=== PATIENT | female | born 1945 | race Caucasian/White ===

== ENCOUNTER → 2020-02-09 12:10 | Outpatient (CLI) | payer MEDICARE, SELFPAY ==
--- NOTE | ~2020-02-09 | MM_ITS ---
EXAMINATION: MM screening anahi BI w ramesh HISTORY: Screening TECHNIQUE: Craniocaudal and mediolateral oblique 3-D tomosynthesis images were obtained and synthetic 2-D images were generated. CAD analysis was submitted and interpreted. COMPARISON: Comparison to multiple prior studies sequentially, with oldest reviewed study dated 05/2014. BREAST PARENCHYMAL COMPOSITION: There are scattered areas of fibroglandular density. FINDINGS: Stable bilateral breast asymmetries. There is no evidence of suspicious mass, calcification , or architectural distortion to suggest malignancy in either breast. There has been no suspicious in terval change. IMPRESSION: 1. No mammographic evidence of malignancy. 2. Recommend routine screening mammography in one year. BI-RADS Category 2: Benign finding(s). Reviewed, dictated and finalized at location A. AGE MAKER
--- NOTE | ~2020-02-09 | DEXA_ITS ---
Bone Density Report Name: Nahomi Villavicencio Age: 74 Sex: Female Ethnicity: White Date of : 1945 Indication: postmenopausal; screening for osteoporosis; height loss; hysterectomy; Referring Provider: Brenda Donovan Study: Bone densitometry was performed. Exam Date: February 09, 2020 Accession number: [id number] Bone Density: Region BMD T-score Z-score Classification AP Spine (L1-L4) 1.025 -0.2 2.2 Normal Femoral Neck (Left) 0.508 -3.1 -1.0 Osteoporosis Total Hip (Left) 0.705 -1.9 -0.1 Osteopenia Femoral Neck (Right) 0.491 -3.2 -1.1 Osteoporosis Total Hip (Right) 0.691 -2.1 -0.3 Osteopenia Total Hip Mean 0.698 -2.0 -0.2 Osteopenia World Health Organization criteria for BMD impression classify patients as: Normal (T-score at or above -1.0), Osteopenia (T-score between -1.0 and -2.5), or Osteoporosis (T-score at or below -2.5). 10-year Fracture Risk: FRAX not reported because: Some T-score for Spine Total or Hip Total or Femoral Neck at or below -2.5 Clinical Information Provided by Patient: Has used the following medications: Vitamin D Has the following medical conditions: Hysterectomy Patient maximum height was 62 Menopause Age: 45 Does not regularly consume dairy products Drinks caffeinated beverages Onset of menses at age 13 Number of children 2 Impression: The patient has osteoporosis, based on the Right Femoral Neck T-score. Discussion: INCREASED RISK OF FRACTURE. BONE DENSITY IS UNDESIRABLY LOW AT ONE OR MORE SKELETAL SITES, CONSISTENT WITH POSTMENOPAUSAL OSTEOPOROSIS. This patient's lowest T-score meets the World Health Organization's (WHO) criteria for osteoporosis at one or more sites (T-score -2.5 or below). In untreated patients, the risk of osteoporotic fracture increases approximately two-fold for each 1.0 SD decrease in T-score. Low bone density is not the only risk factor for fracture; also consider factors such as patient's age, frailty or poor health, risk of falling, risk of injury, previous osteoporotic fracture, family history of osteoporosis, cigarette smoking, low body weight, etc. Not everyone with low bone mineral density has osteoporosis; osteomalacia and other metabolic bone disorders should also be considered. Patients who have osteoporosis should be evaluated for specific diseases and conditions (secondary causes) that may cause or contribute to bone loss. The [place] [employer] Endocrinologists (AACE) and National Osteoporosis Foundation (NOF) recommend pharmacologic intervention for all postmenopausal women whose T-score is in this range. The patient should follow a healthful lifestyle (good nutrition with adequate calcium and vitamin D, and appropriate weight-bearing exercise). Follow-Up: Consider a repeat BMD and Vertebral Fracture Assessment (VFA) exam in 2
== END ==
PROVIDERS: PCP Internal Medicine; Visit Provider Nurse Practitioner
DX: Z12.31 Encounter for screening mammogram for malignant neoplasm of breast (principal); Z78.0 Asymptomatic menopausal state; M85.89 Other specified disorders of bone density and structure, multiple sites; M81.0 Age-related osteoporosis without current pathological fracture
CPT/HCPCS: 77063; 77067; 77080

== ENCOUNTER → 2021-02-10 10:47 | Outpatient (CLI) | payer MEDICARE, SELFPAY ==
--- NOTE | ~2021-02-10 | MM_ITS ---
EXAMINATION: MM screening anahi BI w ramesh HISTORY: Screening mammogram, family history of breast cancer in her mother and daughter. TECHNIQUE: Craniocaudal and mediolateral oblique 3-D tomosynthesis images were obtained and synthetic 2-D images were generated. CAD analysis was submitted and interpreted. COMPARISON: 02/09/2020, 01/05/2019, 12/20/2017 BREAST PARENCHYMAL COMPOSITION: There are scattered areas of fibroglandular density. FINDINGS: RIGHT BREAST: There is no evidence of suspicious mass, calcification, or architectural distortion to suggest malignancy. There has been no significant interval change. LEFT BREAST: There is a mass in the posterior third of the lower inner breast 4 cm from the nipple. IMPRESSION: 1. Left breast mass. 2. Additional mammographic views and possible breast ultrasound are recommended. BI-RADS Category 0: Incomplete: Needs additional imaging evaluation. Reviewed, dictated and finalized at location A. CIATE MANAGER AFFILIATE MARKETING IMPRESSION: 1. Left breast mass. 2. Additional mammographic views and possible breast ultrasound are recommended . BI-RADS Category 0: Incomplete: Needs additional imaging evaluation.
== END ==
PROVIDERS: PCP Internal Medicine; Visit Provider Nurse Practitioner
DX: Z12.31 Encounter for screening mammogram for malignant neoplasm of breast (principal); R92.8 Other abnormal and inconclusive findings on diagnostic imaging of breast
CPT/HCPCS: 77063; 77067

== ENCOUNTER → 2021-03-01 08:28 | Outpatient (CLI) | payer MEDICARE, SELFPAY ==
--- NOTE | ~2021-03-01 | MMUS_ITS ---
EXAMINATION: MM diagnostic anahi LT w ramesh, US breast LT limited HISTORY: Follow-up left breast mass TECHNIQUE: Additional 3-D tomosynthesis images of the left breast were performed and synthetic 2-D im ages were generated. CAD analysis was submitted and interpreted. High resolution Limited left breast ultrasound was performed. COMPARISON: 02/10/2021 BREAST PARENCHYMAL COMPOSITION: Breast composed of scattered areas of fibroglandular density FINDINGS: MAMMOGRAPHIC FINDINGS: There is a mass in the lower central/inner aspect of the left breast with central lucency and circums cribed margins. ULTRASOUND: Limited left breast ultrasound: At 6:00, 4 cm from the nipple there is a 6 mm cyst. No other discrete masses are identified. IMPRESSION: 1. Benign cyst at 6:00, 4 cm from the nipple likely corresponds to the mammographic finding. 2. Recommend 6 month follow-up diagnostic left mammogram with possible additional ultrasound BI-RADS category 3, probably benign findings. Reviewed, dictated and finalized at location A. FILLING MACHINE OPERATOR IMPRESSION: 1. Benign cyst at 6:00, 4 cm from the nipple likely corresponds to the mammogra phic finding. 2. Recommend 6 month follow-up diagnostic left mammogram with possible addition al ultrasound BI-RADS category 3, probably benign findings.
== END ==
PROVIDERS: PCP Internal Medicine; Visit Provider Nurse Practitioner
DX: N60.02 Solitary cyst of left breast (principal)
CPT/HCPCS: 76642; 77061; 77065; G0279

== ENCOUNTER 2021-10-09 11:44 | Outpatient (CLI) | payer MEDICARE, SELFPAY ==
--- NOTE | ~2021-10-09 | MMUS_ITS ---
EXAMINATION: MM diagnostic anahi LT w ramesh, US breast LT limited HISTORY: Six-month follow-up for probably benign left breast mass TECHNIQUE: Craniocaudal, mediolateral, and mediolateral oblique 3-D tomosynthesis images of the left breast were performed and synthetic 2-D images were generated. CAD analysis was submitted and interpr eted. High resolution limited left breast ultrasound was performed. COMPARISON: 03/01/2021, 02/10/2021, 02/09/2020, 01/05/2019 BREAST PARENCHYMAL COMPOSITION: There are scattered areas of fibroglandular density. FINDINGS: MAMMOGRAPHIC FINDINGS: There is a 12 mm high density mass with spiculated and indistinct margins in the posterior third lowe r outer quadrant left breast at the 8:00 location 13 cm from the nipple with slight increase in size. ULTRASOUND: No definite sonographic correlate is identified for the mammographic finding in question. There is a 5 mm cyst at the 6:00 location 4 cm from the nipple. IMPRESSION: 1. Suspicious left breast mass without definite sonographic correlate identified. 2. Stereotactic biopsy is recommended. BI-RADS category 4, suspicious findings. Reviewed, dictated and finalized at location A. IMPRESSION: 1. Suspicious left breast mass without definite sonographic correlate identifie d. 2. Stereotactic biopsy is recommended. BI-RADS category 4, suspicious findings.
== END 2021-10-09 11:45 | disposition home or self-care (01) ==
LOC: ANHIMG 11:45
PROVIDERS: PCP Internal Medicine; Visit Provider Nurse Practitioner
DX: R92.8 Other abnormal and inconclusive findings on diagnostic imaging of breast (principal)
CPT/HCPCS: 76642; 77061; 77065; G0279

== ENCOUNTER 2021-10-18 09:11 | Outpatient (CLI) | payer MEDICARE, SELFPAY ==
--- NOTE | ~2021-10-18 | MM_ITS ---
MM stereotactic specimen LT DATE: 10/18/2021 12:07 INDICATION: Productive biopsy of 12 mm soft tissue opacity, lower inner quadrant of left breast TECHNIQUE: Single digital mammographic exposure of specimen tissue COMPARISON: 10/09/2021 diagnostic left mammogram 10/18/2021 stereotactic left breast biopsy FINDINGS: Multiple fragments of the mammographic soft tissue density of interest are noted within the specimen tissue. IMPRESSION: Successful stereotactic biopsy yielding multiple fragments of the mammographic soft tissu e density of interest from the lower inner quadrant Reviewed, dictated and finalized at Location A. Reviewed, dictated and finalized at location A. IMPRESSION: Successful stereotactic biopsy yielding multiple fragments of the m ammographic soft tissue density of interest from the lower inner quadrant
--- NOTE | ~2021-10-18 | MM_ITS ---
EXAMINATION: MM stereotactic bx LT, Specimen Radiograph, Tissue Marker Clip Placement, Unilateral Eric mogram DATE: 10/18/2021 12:05 INDICATION: Abnormal mammogram: 12 mm high density mammographic mass in posterior third of lower inne r quadrant of left breast. TECHNIQUE AND FINDINGS: The risks and potential benefits of the procedure were discussed with the patient and written informe d consent was obtained. Timeout procedure was performed. The patient was placed in the prone position on the dedicated stereotactic table with the left breast in mediolateral compression, and the area o f interest was localized and targeted utilizing digital imaging with stereotaxis. After sterile preparation of the skin, 1% lidocaine was utilized for local anesthesia at the skin pun cture site and 1% lidocaine with epinephrine was utilized for deeper local anesthesia/is about the bi opsy site. A 9G makerSQR vacuum assisted biopsy needle was advanced to the level of the calcification o f interest from a medial approach utilizing stereotactic guidance and a total of 15 tissue core biops ies were obtained. The needle was removed and hemostasis was achieved. A sterile bandage was applied. The patient tole rated the procedure well and there is no evidence of significant immediate complication. The patient was given verbal as well as written postprocedural instructions prior to discharge from the [facility]. Tissue cores were submitted to surgical pathology for histologic analysis. A 2-view right unilateral digital mammogram was obtained post procedure. IMPRESSION: 1. Successful stereotactic biopsy of lower inner quadrant left mammographic opacity. Please refer to pathology report for histologic analysis. Reviewed, dictated and finalized at Location A. Reviewed, dictated and finalized at location A. IMPRESSION: 1. Successful stereotactic biopsy of lower inner quadrant left mammographic o pacity. Please refer to pathology report for histologic analysis.
--- NOTE | ~2021-10-18 | MM_ITS ---
MM post biopsy diagnostic LT DATE: 10/18/2021 12:07 INDICATION: Stereotactic biopsy of 12 mm opacity, lower inner quadrant of left breast TECHNIQUE: Digital ML and CC exposures following*detected biopsy COMPARISON: 10/09/2021 diagnostic left mammogram FINDINGS: There is successful partial excision of the previously reported mammographic opacity in the lower inner left breast by means of stereotactic biopsy today. IMPRESSION: Successful stereotactic biopsy sampling of mass density at lower inner quadrant of left b reast Reviewed, dictated and finalized at Location A. Reviewed, dictated and finalized at location A. IMPRESSION: Successful stereotactic biopsy sampling of mass density at lower in ner quadrant of left breast
== END 2021-10-18 09:12 | disposition home or self-care (01) ==
PROVIDERS: PCP Internal Medicine; Visit Provider Nurse Practitioner
DX: C50.312 Malignant neoplasm of lower-inner quadrant of left female breast (principal); R92.8 Other abnormal and inconclusive findings on diagnostic imaging of breast
CPT/HCPCS: 19081; 77065; 88305; 88342; 88360

== ENCOUNTER 2022-04-20 10:25 | Outpatient (CLI) | payer MEDICARE, SELFPAY ==
[2022-04-20 10:39] LABS: Basophils Percent Auto 0.6 % (0.2-1.2); Eosinophils Absolute Auto 0.1 K/mm3 (0-0.3); Eosinophils Percent Auto 2.6 % (0-4.4); Hematocrit 40.6 % (37.0-47.0); Hemoglobin 13.9 g/dL (12.0-15.0); Immature Granulocyte Absolute 0.01 K/mm3 (0.00-0.031); Immature Granulocyte Percent A 0.2 % (0-0.5); Lymphocytes Absolute Auto 1.42 K/mm3 (0.9-3.2); Lymphocytes Percent Auto 26.6 % (18.3-44.2); Mean Corpuscular HGB Conc 34.2 g/dl (32-36); Mean Corpuscular Hemoglobin 30.5 pg (26-34); Mean Platelet Volume 8.6 fl (7.4-10.4); Monocytes Absolute Auto 0.6 K/mm3 (0.1-0.6); Monocytes Percent Auto 10.9 % (2.6-8.5); Neutrophils Absolute Auto 3.2 K/mm3 (1.3-6.7); Neutrophils Percent Auto 59.1 % (45.5-73.1); Platelet Count Result 193 k/mm3 (150-375); Red Blood Count 4.56 M/mm3 (4.2-5.4); White Blood Count 5.3 K/mm3 (4.5-10.0)
[2022-04-20 10:43] LABS: Blood Urea Nitrogen 16 mg/dL (8-26); Carbon Dioxide 33 mmol/L (22-30); Chloride 95 mmol/L (98-109); Estimated Glomerular Filt Rate 44; Glucose 100 mg/dL (70-105); Ionized Calcium (POC) 1.26 mmol/L (1.11-1.31); Potassium 4.3 mmol/L (3.5-4.9); Sodium 135 mmol/L (138-146)
[2022-04-20 11:05] LABS: Alanine Aminotransferase 27 U/L (6-35); Albumin Level 4.4 g/dL (3.5-5.1); Alkaline Phosphatase 44 U/L (38-126); Anion Gap 5 mmol/L (8-16); Aspartate Amino Transferase 35 U/L (14-36); Bilirubin,Total 0.6 mg/dL (0.2-1.3); Blood Urea Nitrogen 16 mg/dL (7-17); Calcium 9.8 mg/dL (8.4-10.2); Carbon Dioxide 31 mmol/L (22-30); Chloride 95 mmol/L (98-107); Estimated Glomerular Filt Rate 54; Glucose 99 mg/dL (65-110); Potassium 4.3 mmol/L (3.4-5.0); Sodium 131 mmol/L (137-145)
== END 2022-04-20 10:26 | disposition home or self-care (01) ==
LOC: ANHLAB 10:28
PROVIDERS: PCP Internal Medicine; Visit Provider Internal Medicine Hematology & Oncology
DX: C50.512 Malignant neoplasm of lower-outer quadrant of left female breast (principal); Z17.0 Estrogen receptor positive status [ER+]
CPT/HCPCS: 36415; 80047; 80053; 85025

== ENCOUNTER 2022-08-02 13:04 | Outpatient (CLI) | payer MEDICARE, SELFPAY ==
[2022-08-02 13:20] LABS: Basophils Percent Auto 0.3 % (0.2-1.2); Hematocrit 38.4 % (37.0-47.0); Hemoglobin 13.6 g/dL (12.0-15.0); Immature Granulocyte Absolute 0.03 K/mm3 (0.00-0.031); Immature Granulocyte Percent A 0.3 % (0-0.5); Lymphocytes Absolute Auto 1.47 K/mm3 (0.9-3.2); Lymphocytes Percent Auto 17.1 % (18.3-44.2); Mean Corpuscular HGB Conc 35.4 g/dl (32-36); Mean Corpuscular Hemoglobin 30.5 pg (26-34); Mean Corpuscular Volume 86.1 fl (80-100); Mean Platelet Volume 8.1 fl (7.4-10.4); Monocytes Absolute Auto 0.7 K/mm3 (0.1-0.6); Monocytes Percent Auto 8.4 % (2.6-8.5); Neutrophils Absolute Auto 6.4 K/mm3 (1.3-6.7); Neutrophils Percent Auto 73.9 % (45.5-73.1); Platelet Count Result 302 k/mm3 (150-375); Red Blood Count 4.46 M/mm3 (4.2-5.4); Red Cell Distribution Width 11.5 % (11.5-14.5); White Blood Count 8.6 K/mm3 (4.5-10.0)
[2022-08-02 16:24] LABS: Alanine Aminotransferase 24 U/L (6-35); Albumin Level 4.5 g/dL (3.5-5.1); Alkaline Phosphatase 66 U/L (38-126); Anion Gap 6 mmol/L (8-16); Aspartate Amino Transferase 45 U/L (14-36); Bilirubin,Total 0.5 mg/dL (0.2-1.3); Blood Urea Nitrogen 15 mg/dL (7-17); Calcium 9.7 mg/dL (8.4-10.2); Carbon Dioxide 28 mmol/L (22-30); Chloride 93 mmol/L (98-107); Estimated Glomerular Filt Rate > 60; Glucose 104 mg/dL (65-110); Potassium 4.9 mmol/L (3.4-5.0); Sodium 127 mmol/L (137-145)
[2022-08-09 07:59] LABS: CA 15-3 12 U/mL (<32)
== END 2022-08-02 13:05 | disposition home or self-care (01) ==
LOC: ANHLAB 13:06
PROVIDERS: PCP Family Medicine; Visit Provider Internal Medicine Hematology & Oncology
DX: C50.512 Malignant neoplasm of lower-outer quadrant of left female breast (principal); Z17.0 Estrogen receptor positive status [ER+]
CPT/HCPCS: 36415; 80053; 85025; 86300

== ENCOUNTER 2022-11-01 11:27 | Outpatient (CLI) | payer MEDICARE, SELFPAY ==
[2022-11-01 11:41] LABS: Basophils Percent Auto 0.4 % (0.2-1.2); Eosinophils Absolute Auto 0.1 K/mm3 (0-0.3); Eosinophils Percent Auto 1.3 % (0-4.4); Hematocrit 41.2 % (37.0-47.0); Hemoglobin 13.8 g/dL (12.0-15.0); Immature Granulocyte Absolute 0.02 K/mm3 (0.00-0.031); Immature Granulocyte Percent A 0.3 % (0-0.5); Lymphocytes Absolute Auto 1.27 K/mm3 (0.9-3.2); Lymphocytes Percent Auto 18.9 % (18.3-44.2); Mean Corpuscular HGB Conc 33.5 g/dl (32-36); Mean Corpuscular Hemoglobin 30.4 pg (26-34); Mean Corpuscular Volume 90.7 fl (80-100); Mean Platelet Volume 8.8 fl (7.4-10.4); Monocytes Absolute Auto 0.6 K/mm3 (0.1-0.6); Monocytes Percent Auto 8.2 % (2.6-8.5); Neutrophils Absolute Auto 4.8 K/mm3 (1.3-6.7); Neutrophils Percent Auto 70.9 % (45.5-73.1); Platelet Count Result 180 k/mm3 (150-375); Red Blood Count 4.54 M/mm3 (4.2-5.4); Red Cell Distribution Width 12.3 % (11.5-14.5); White Blood Count 6.7 K/mm3 (4.5-10.0)
[2022-11-01 12:09] LABS: Alanine Aminotransferase 25 U/L (6-35); Albumin Level 4.4 g/dL (3.5-5.1); Alkaline Phosphatase 46 U/L (38-126); Anion Gap 5 mmol/L (8-16); Aspartate Amino Transferase 43 U/L (14-36); Bilirubin,Total 0.6 mg/dL (0.2-1.3); Blood Urea Nitrogen 17 mg/dL (7-17); Calcium 9.6 mg/dL (8.4-10.2); Carbon Dioxide 29 mmol/L (22-30); Chloride 102 mmol/L (98-107); Estimated Glomerular Filt Rate > 60; Glucose 110 mg/dL (65-110); Potassium 4.4 mmol/L (3.4-5.0); Sodium 136 mmol/L (137-145)
[2022-11-06 19:46] LABS: CA 15-3 15 U/mL (<32)
== END 2022-11-01 11:28 | disposition home or self-care (01) ==
LOC: ANHLAB 11:29
PROVIDERS: PCP Family Medicine; Visit Provider Internal Medicine Hematology & Oncology
DX: C50.512 Malignant neoplasm of lower-outer quadrant of left female breast (principal); Z17.0 Estrogen receptor positive status [ER+]
CPT/HCPCS: 36415; 80053; 85025; 86300

== ENCOUNTER 2023-03-05 09:21 | Outpatient (CLI) | payer MEDICARE, SELFPAY ==
[2023-03-05 09:36] LABS: Basophils Percent Auto 0.3 % (0.2-1.2); Eosinophils Absolute Auto 0.2 K/mm3 (0-0.3); Eosinophils Percent Auto 2.2 % (0-4.4); Hemoglobin 13.7 g/dL (12.0-15.0); Immature Granulocyte Absolute 0.03 K/mm3 (0.00-0.031); Immature Granulocyte Percent A 0.3 % (0-0.5); Lymphocytes Absolute Auto 1.23 K/mm3 (0.9-3.2); Lymphocytes Percent Auto 13.6 % (18.3-44.2); Mean Corpuscular HGB Conc 33.4 g/dl (32-36); Mean Corpuscular Hemoglobin 30.2 pg (26-34); Mean Corpuscular Volume 90.5 fl (80-100); Mean Platelet Volume 8.3 fl (7.4-10.4); Monocytes Absolute Auto 0.5 K/mm3 (0.1-0.6); Monocytes Percent Auto 5.1 % (2.6-8.5); Neutrophils Absolute Auto 7.1 K/mm3 (1.3-6.7); Neutrophils Percent Auto 78.5 % (45.5-73.1); Platelet Count Result 257 k/mm3 (150-375); Red Blood Count 4.53 M/mm3 (4.2-5.4); Red Cell Distribution Width 12.3 % (11.5-14.5)
[2023-03-05 10:42] LABS: Alanine Aminotransferase 24 U/L (6-35); Albumin Level 4.2 g/dL (3.5-5.1); Alkaline Phosphatase 51 U/L (38-126); Anion Gap 8 mmol/L (8-16); Aspartate Amino Transferase 31 U/L (14-36); Bilirubin,Total 0.6 mg/dL (0.2-1.3); Blood Urea Nitrogen 14 mg/dL (7-17); Calcium 9.5 mg/dL (8.4-10.2); Carbon Dioxide 29 mmol/L (22-30); Chloride 100 mmol/L (98-107); Estimated Glomerular Filt Rate > 60; Glucose 123 mg/dL (65-110); Potassium 4.3 mmol/L (3.4-5.0); Sodium 137 mmol/L (137-145)
[2023-03-05 11:12] LABS: Thyroid Stimulating Hormone 0.954 uIU/mL (0.465-4.680)
[2023-03-07 20:05] LABS: CA 15-3 13 U/mL (<32)
== END 2023-03-05 09:22 | disposition home or self-care (01) ==
LOC: ANHLAB 09:23
PROVIDERS: PCP Nurse Practitioner Family; Visit Provider Internal Medicine Hematology & Oncology
DX: C50.512 Malignant neoplasm of lower-outer quadrant of left female breast (principal); E03.9 Hypothyroidism, unspecified; Z17.0 Estrogen receptor positive status [ER+]; Z79.899 Other long term (current) drug therapy
CPT/HCPCS: 36415; 80053; 84443; 85025; 86300

== ENCOUNTER 2023-06-04 11:12 | Emergency (ER) | payer MEDICARE, SELFPAY ==
[2023-06-04] VITALS (12 sets, daily range): BP systolic 141–162; BP diastolic 53–88; PULSE 68–92; RESP 14–21; TEMP 36.7; O2SAT 99–100
--- NOTE | ~2023-06-04 | XR_ITS ---
XR foot RT min 3V 06/04/2023 11:53 Indication: Right foot pain Procedure: 4 views right foot Comparison: No prior studies for comparison. Findings: There is polyarticular osteoarthritis. Osteopenia. Lisfranc joint intact. There are surgica l changes of the first proximal phalanx with overlying cerclage wire. Prominent degenerative calcaneal enthesophytes. No acute fracture or traumatic malalignment. No forei gn bodies. Impression: 1: Polyarticular osteoarthritis. Reviewed, dictated and finalized at location B. Impression: 1: Polyarticular osteoarthritis.
--- NOTE | ~2023-06-04 | CT_ITS ---
EXAMINATION: CT cervical spine wo con DATE: 06/04/2023 13:04 INDICATION: Neck pain. Fall. TECHNIQUE: Computed tomography (CT) of the cervical spine was performed without intravenous contrast. Automated exposure control and iterative reconstruction technique were employed. The dose-length pro duct was 227.24 mGy-cm. COMPARISON: None FINDINGS: There is 4 degrees dextrocurvature of cervical spine. There is a hemangioma in C5 vertebral body. Vertebral body heights are normal. There is mildly decreased disc height at C3-C4 and moderate ly decreased disc height at C5-C6. The following disc levels are specifically discussed: C2-C3: There is mild right uncovertebral joint osteoarthritis. There is mild bilateral facet joint os teoarthritis. There is no neural foraminal stenosis. There is no central canal stenosis. C3-C4: There is severe bilateral uncovertebral joint osteoarthritis. There is severe bilateral facet joint osteoarthritis. There is mild bilateral neural foraminal stenosis. There is mild central canal stenosis. C4-C5: There is mild bilateral uncovertebral joint osteoarthritis. There is severe bilateral facet josh int osteoarthritis. There is mild bilateral neural foraminal stenosis. There is mild central canal st enosis. C5-C6: There is severe bilateral uncovertebral joint osteoarthritis. There is mild right and moderate left facet joint osteoarthritis. There is mild right and moderate left neural foraminal stenosis. Th ere is mild central canal stenosis. C6-C7: There is no uncovertebral joint osteoarthritis. There is mild bilateral facet joint osteoarthr itis. There is no neural foraminal stenosis. There is no central canal stenosis. C7-T1: There is no uncovertebral joint osteoarthritis. There is severe bilateral facet joint osteoart hritis. There is mild bilateral neural foraminal stenosis. There is no central canal stenosis. IMPRESSION: 1. No fracture. 2. Moderate cervical spondylosis. Reviewed, dictated and finalized at location E.
--- NOTE | ~2023-06-04 | XR_ITS ---
XR knee RT min 4V 06/04/2023 11:53 Indication: Right knee pain after recent fall Procedure: 4 views right knee Comparison: No prior studies for comparison. Findings: There is an impaction fracture of the proximal tibia with intra-articular extension to the tibial plateau. No significant displacement. Small joint effusion. There is osteoarthritis. Impression: 1: Impaction fracture of the proximal tibia with intra-articular extension. Reviewed, dictated and finalized at location B. Impression: 1: Impaction fracture of the proximal tibia with intra-articular extension.
--- NOTE | ~2023-06-04 | XR_ITS ---
XR ankle RT min 3V 06/04/2023 11:53 Indication: Right ankle pain Procedure: 4 views right ankle Comparison: No prior studies for comparison. Findings: Osteopenia. There are degenerative changes. There are ossific densities distal to the later al and medial malleoli, consistent with avulsion fractures, age indeterminate. Moderate lateral soft tissue swelling. Talar dome is unremarkable. There are prominent degenerative calcaneal enthesophytes . Impression: 1: Avulsion fracture fragments distal to the malleoli, age indeterminate. Correlate for point tendern ess. Reviewed, dictated and finalized at location B. Impression: 1: Avulsion fracture fragments distal to the malleoli, age indeterminate. Corre late for point tenderness.
--- NOTE | ~2023-06-04 | XR_ITS ---
EXAMINATION: XR chest 1V DATE: 06/04/2023 13:23 INDICATION: Fall. TECHNIQUE: A single frontal view of the chest was obtained. COMPARISON: None. FINDINGS: There is no pneumonia, pleural effusion, or pneumothorax. The heart size is normal. There a re surgical clips in left axilla and right abdomen. IMPRESSION: 1. No acute cardiopulmonary disease. Reviewed, dictated and finalized at location E.
--- NOTE | ~2023-06-04 | CT_ITS ---
EXAMINATION: CT lumbar spine wo con DATE: 06/04/2023 13:04 INDICATION: Low back pain. Fall. TECHNIQUE: Computed tomography (CT) of the lumbar spine was performed without intravenous contrast. A utomated exposure control and iterative reconstruction technique were employed. The dose-length produ ct was 514.06 mGy-cm. COMPARISON: None FINDINGS: There is 11 degrees levoscoliosis of lumbar spine. There is a hemangioma in T11 vertebral b rina. There is mild chronic anterior wedging of T11 and T12 vertebral bodies. There is a burst fractur e of T4 with 3/4 loss of height and retropulsion of bone 4 mm into central spinal canal. The interver tebral disc heights are normal. The following disc levels are specifically discussed: L1-L2: The disc is bulging. There is mild bilateral facet joint osteoarthritis. There is mild bilater al neural foraminal stenosis. There is mild central canal stenosis. L2-L3: The disc is bulging. There is severe bilateral facet joint osteoarthritis. There is mild bilat eral neural foraminal stenosis. There is mild central canal stenosis. L3-L4: The disc is bulging. There is severe bilateral facet joint osteoarthritis. There is severe rig ht and moderate left neural foraminal stenosis. There is severe central canal stenosis. L4-L5: The disc is bulging. There is severe bilateral facet joint osteoarthritis. There is mild bilat eral neural foraminal stenosis. There is mild central canal stenosis. L5-S1: The disc is bulging. There is severe bilateral facet joint osteoarthritis. There is mild bilat eral neural foraminal stenosis. There is mild central canal stenosis. IMPRESSION: 1. Acute L4 burst fracture. 2. Severe lumbar spondylosis. 3. Lumbar levoscoliosis. Reviewed, dictated and finalized at location E.
--- NOTE | ~2023-06-04 | CT_ITS ---
EXAMINATION: CT brain wo con DATE: 06/04/2023 13:04 INDICATION: Head injury and neck pain post fall down stairs TECHNIQUE: Computed tomography (CT) of the head was performed without intravenous contrast. Sagittal and coronal reconstructions were performed. The mA was adjusted according to patient size. Iterative reconstruction technique was employed. The dose-length product was 605.33 mGy-cm. COMPARISON: None FINDINGS: No fracture. No acute intracranial hemorrhage, acute infarction or abnormal extra axial fluid collect ion. There is mild scattered white matter hypoattenuation consistent with chronic small vessel ischem ic disease. Symmetric prominence of the sulci consistent with mild age-appropriate diffuse cerebral v olume loss. Ventricles are normal and symmetric. No mass/mass effect. The orbits, paranasal sinuses and mastoid air cells are normal. IMPRESSION: 1. No fracture or acute intracranial process. 2. Age-related changes including mild diffuse volume loss and mild scattered white matter hypoattenua tion consistent with chronic small vessel ischemic disease. Reviewed, dictated and finalized at location A. IMPRESSION: 1. No fracture or acute intracranial process. 2. Age-related changes including mild diffuse volume loss and mild scattered wh ite matter hypoattenuation consistent with chronic small vessel ischemic diseas e.
--- NOTE | ~2023-06-04 | XR_ITS ---
EXAMINATION: XR hip BI 2V w AP pelvis DATE: 06/04/2023 13:23 INDICATION: Fall. TECHNIQUE: An anteroposterior view of the pelvis and 2 views of each hip were obtained. COMPARISON: None. FINDINGS: Bone alignment is normal. There is an acute L4 burst fracture. There is mild osteoarthritis of the hips. IMPRESSION: 1. Acute L4 burst fracture. 2. Mild osteoarthritis of the hips. Reviewed, dictated and finalized at location E.
--- NOTE | 2023-06-04 13:10 | ED.GENADULT ---
HPI - General Adult General Chief complaint: Fall Stated complaint: fall Time Seen by Provider: 06/04/23 11:29 History of Present Illness HPI narrative: Nahomi Villavicencio is a 77 y/o female who presents today with repots of having some pain to her right hip for about a week. She states that her right leg gave out on her yesterday and she started to have increased hip pain. Her helped her up and she made an appointment to see her PCP today. Today before she went to her PCP appointment she was standing by the stairs and her right leg gave out again and she slid down about 13 stairs and now having right knee pain/ right ankle pain, continued right hip pain and lumbar back pain. She denies LOC / did not hit her head / She went to see her PCP and was sent here for further evaluation. Related Data Allergies Allergy/AdvReac Type Severity Reaction Status Date / Time No Known Allergies Allergy Unknown NONE Verified 06/04/23 11:13 Review of Systems Review of Systems: CONSTITUTIONAL: Denies fever, chills, or sweats. EYES: Denies visual changes, redness, or discharge. ENT: Denies rhinorrhea, congestion, sore throat, or otalgia. CARDIOVASCULAR: Denies chest pain, palpitations, or edema. RESPIRATORY: Denies cough or dyspnea. GASTROINTESTINAL: Denies abdominal pain, nausea, vomiting, or diarrhea. GENITOURINARY: Denies dysuria or hematuria. SKIN: Denies rash or itching. MUSCULOSKELETAL: Complains of right hip / right knee/ right ankle / low back pain after fall today and yesterday NEUROLOGIC: Denies headache, numbness, dizziness, or weakness. PSYCHIATRIC: Denies anxiety or depression. [facility] Past Medical History Medical History Ankle sprain Benign essential hypertension Fracture of proximal end of tibia Hypothyroidism, unspecified L4 vertebral fracture Lumbar spondylosis Mixed hyperlipidemia Mucinous carcinoma of breast Osteoporosis Postmenopausal Pre-diabetes Screening for breast cancer Screening for colon cancer Surgical History Surgical History H/O mastectomy Family History Family History Mother Family history of diabetes mellitus in first degree relative Father Family history of heart disease in male family member before age 55 Social History Social History Smoking packs per day: 0.5 Smoking cigarettes per day: 10.0 Years smoked: 15 Smoking pack-years: 7.50 Smoking status: Former smoker Tobacco type: cigarettes Smoking end date: 11/30/79 Alcohol intake: never Lack of Transportation: No Lack of Food: Never True Current Housing: I Have Housing Concerned About Future Housing: No Difficulty Paying Gas/Electric Bills: No Difficulty Paying for Meds: No Currently Unemployed: No Education: High School Diploma/GED Difficulty w/ Childcare or Family Care: No Spiritual care concerns: No Exam Narrative: GENERAL: Well-appearing, well-nourished, and in no acute distress. HEAD: Normocephalic, atraumatic. EYES: PERRLA and EOMI. ENT: Nares clear, no rhinorrhea or epistaxis. Mucous membranes moist. Oropharynx without tonsillar hypertrophy exudate or other lesions. NECK: Supple. No adenopathy or masses. No carotid bruits or JVD CHEST: Clear to auscultation. No respiratory distress. No wheezes rales or rhonchi HEART: Regular rate and rhythm. No murmur heard. Normal peripheral pulses. ABDOMEN: Soft, nontender, nondistended, normal active bowel sounds. EXTREMITIES: + bruising to her right foot with swelling more on the medial side + bruising below her right knee SKIN: Warm, dry, no rash. NEURO: No focal deficits. Alert and oriented x3. PSYCH: Normal mood and affect. Course Vital Signs Vital signs: Vital Signs Temperature 36.7 C 06/04/23 11:19 Pulse Rate 92
[2023-06-04 14:10] LABS: Basophils Percent Auto 0.2 % (0.2-1.2); Hematocrit 36.6 % (37.0-47.0); Hemoglobin 12.9 g/dL (12.0-15.0); Immature Granulocyte Absolute 0.03 K/mm3 (0.00-0.031); Immature Granulocyte Percent A 0.2 % (0-0.5); Lymphocytes Absolute Auto 0.88 K/mm3 (0.9-3.2); Lymphocytes Percent Auto 6.6 % (18.3-44.2); Mean Corpuscular HGB Conc 35.2 g/dl (32-36); Mean Corpuscular Hemoglobin 30.3 pg (26-34); Mean Corpuscular Volume 85.9 fl (80-100); Mean Platelet Volume 8.4 fl (7.4-10.4); Monocytes Absolute Auto 0.8 K/mm3 (0.1-0.6); Monocytes Percent Auto 5.8 % (2.6-8.5); Neutrophils Absolute Auto 11.7 K/mm3 (1.3-6.7); Neutrophils Percent Auto 87.2 % (45.5-73.1); Platelet Count Result 252 k/mm3 (150-375); Red Blood Count 4.26 M/mm3 (4.2-5.4); White Blood Count 13.4 K/mm3 (4.5-10.0)
[2023-06-04] MEDS: fentaNYL CITRATE INJ (*CRX) 100 MCG/2 ML VIAL 50 MCG IV PUSH (14:11)
[2023-06-04 14:29] LABS: Alanine Aminotransferase 22 U/L (6-35); Albumin Level 4.1 g/dL (3.5-5.1); Alkaline Phosphatase 68 U/L (38-126); Anion Gap 4 mmol/L (4-12); Aspartate Amino Transferase 34 U/L (14-36); Bilirubin,Total 0.8 mg/dL (0.2-1.3); Blood Urea Nitrogen 13 mg/dL (7-17); Calcium 9.5 mg/dL (8.4-10.2); Carbon Dioxide 29 mmol/L (22-30); Chloride 91 mmol/L (98-107); Estimated CRCL calculation 52 ml/min; Estimated Glomerular Filt Rate > 60; Glucose 117 mg/dL (65-110); Potassium 3.4 mmol/L (3.4-5.0); Sodium 124 mmol/L (137-145)
--- NOTE | 2023-06-04 15:07 | PM.CNOR ---
Assessment and Plan Assessment and plan (1) Fracture of proximal end of tibia: Qualifiers: Encounter type: initial encounter Fracture type: closed Fracture morphology: other fracture Laterality: right Qualified Code(s): S82.191A - Other fracture of upper end of right tibia, initial encounter for closed fracture Code(s): S82.109A - Unspecified fracture of upper end of unspecified tibia, initial encounter for closed fracture Status: Acute Assessment and Plan: Radiographs the right knee reveal an impaction fracture of the proximal tibia with intra-articular extension. Discuss fracture type, condition, nature, etiology and course of natural history with the patient and her family at the bedside. Conservative and operative treatment options reviewed as well as the risks and benefits of each. At this time, Dr. Nicole is recommending conservative treatment with a knee immobilizer or hinged knee brace locked out at 0? and nonweightbearing of the right lower extremity x 6-8 weeks. We will be happy to see the patient from an orthopedic standpoint regarding her right knee if patient is admitted after acceptance from neuro surgery. Otherwise, if patient is transferred to a tertiary care center for her L4 burst fracture, care should be assumed by the accepting facility. In the interim, patient should be nonweightbearing of the right lower extremity. Ice and pain control. Knee immobilizer to be placed. patient will likely require discharge to [facility] versus home with home health depending on a PT and OT evaluation. We will determine further plan of care pending decision for admission. (2) L4 vertebral fracture: Qualifiers: Encounter type: initial encounter Fracture type: closed Code(s): S32.049A - Unspecified fracture of fourth lumbar vertebra, initial encounter for closed fracture Status: Acute Assessment and Plan: Lumbar spine CT and hip and pelvis x-rays revealed a acute L4 burst fracture. Patient did have a fall down 13 stairs. She was experiencing pain in the lumbar spine and radiculopathy into the right leg. after discussion with attending physician, Dr. Nicole, recommended that the emergency room discussed with neurosurgery the appropriateness of admitting patient to the hospital given acute lumbar L4 burst fracture. ER physician's aware of possible need for transfer dependent upon neuro surgery recommendations. (3) Lumbar spondylosis: Code(s): M47.816 - Spondylosis without myelopathy or radiculopathy, lumbar region Status: Acute (4) Osteoporosis: Code(s): M81.0 - Age-related osteoporosis without current pathological fracture Status: Acute (5) Ankle sprain: Qualifiers: Encounter type: initial encounter Involved ligament of ankle: anterior talofibular ligament Laterality: right Qualified Code(s): S93.491A - Sprain of other ligament of right ankle, initial encounter Code(s): S93.409A - Sprain of unspecified ligament of unspecified ankle, initial encounter Status: Acute Assessment and Plan: Patient with significant ecchymosis of and swelling of the right lateral ankle. Radiographs the foot and ankle reveal an avulsion fracture of the distal lateral malleolus. She also has diffuse polyarticular arthritis. Soft tissue swelling noted. Patient would benefit from a stirrup splint for immobilization and pain control as patient will be nonweightbearing of the right lower extremity given right medial tibia fracture. Pain control, ice. Gentle range of motion exercises of the foot/ankle. Removable stirrup splint to be ordered if not transferred to an OSH for L4 Burst Fracture. Plan Reviewed history, exam, radiographs and current labs with attending MD and covering surgeon, Dr. Nicole, who agrees with current plan as indicated above. Dr. Nicole has personally spoke with the emergency room physician and recommended transfer to a tertiary care
--- NOTE | 2023-06-04 17:04 | PC.NURSE ---
Pt no longer in room for medications.
== END 2023-06-04 17:08 | disposition short-term general hospital (02) ==
LOC: ANHED 11:49
PROVIDERS: Emergency Provider Nurse Practitioner Family; PCP Nurse Practitioner Family
DX: M25.551 Pain in right hip (principal); S32.049A Unspecified fracture of fourth lumbar vertebra, initial encounter for closed fracture; S82.191A Other fracture of upper end of right tibia, initial encounter for closed fracture; M81.0 Age-related osteoporosis without current pathological fracture; M47.812 Spondylosis without myelopathy or radiculopathy, cervical region; E03.9 Hypothyroidism, unspecified; I10 Essential (primary) hypertension; Z87.891 Personal history of nicotine dependence; W10.9XXA Fall (on) (from) unspecified stairs and steps, initial encounter
CPT/HCPCS: 36415; 70450; 71045; 72125; 72131; 73521; 73564; 73610; 73630; 80053; 85025; 96374; 99285; J3010

== ENCOUNTER 2023-07-29 11:13 | Outpatient (CLI) | payer MEDICARE, SELFPAY ==
[2023-07-29 11:45] LABS: Basophils Percent Auto 0.5 % (0.2-1.2); Eosinophils Absolute Auto 0.2 K/mm3 (0-0.3); Eosinophils Percent Auto 3.8 % (0-4.4); Hematocrit 40.2 % (37.0-47.0); Hemoglobin 13.6 g/dL (12.0-15.0); Immature Granulocyte Absolute 0.01 K/mm3 (0.00-0.031); Immature Granulocyte Percent A 0.2 % (0-0.5); Lymphocytes Percent Auto 22.7 % (18.3-44.2); Mean Corpuscular HGB Conc 33.8 g/dl (32-36); Mean Corpuscular Hemoglobin 30.6 pg (26-34); Mean Corpuscular Volume 90.3 fl (80-100); Mean Platelet Volume 8.7 fl (7.4-10.4); Monocytes Absolute Auto 0.4 K/mm3 (0.1-0.6); Neutrophils Absolute Auto 3.8 K/mm3 (1.3-6.7); Neutrophils Percent Auto 65.8 % (45.5-73.1); Platelet Count Result 246 k/mm3 (150-375); Red Blood Count 4.45 M/mm3 (4.2-5.4); Red Cell Distribution Width 12.4 % (11.5-14.5); White Blood Count 5.7 K/mm3 (4.5-10.0)
[2023-07-29 13:12] LABS: Alanine Aminotransferase 18 U/L (6-35); Alkaline Phosphatase 63 U/L (38-126); Anion Gap 7 mmol/L (4-12); Aspartate Amino Transferase 28 U/L (14-36); Bilirubin,Total 0.7 mg/dL (0.2-1.3); Blood Urea Nitrogen 15 mg/dL (7-17); Calcium 9.8 mg/dL (8.4-10.2); Carbon Dioxide 28 mmol/L (22-30); Chloride 103 mmol/L (98-107); Estimated Glomerular Filt Rate > 60; Glucose 104 mg/dL (65-110); Potassium 4.6 mmol/L (3.4-5.0); Sodium 138 mmol/L (137-145)
[2023-07-31 04:23] LABS: CA 15-3 14 U/mL (<32)
== END 2023-07-29 11:14 | disposition home or self-care (01) ==
PROVIDERS: PCP Nurse Practitioner Family; Visit Provider Internal Medicine Hematology & Oncology
DX: C50.512 Malignant neoplasm of lower-outer quadrant of left female breast (principal); Z17.0 Estrogen receptor positive status [ER+]
CPT/HCPCS: 36415; 80053; 85025; 86300

== ENCOUNTER 2023-12-02 11:54 | Outpatient (CLI) | payer MEDICARE, SELFPAY ==
[2023-12-02 12:23] LABS: Basophils Percent Auto 0.3 % (0.2-1.2); Eosinophils Absolute Auto 0.1 K/mm3 (0-0.3); Eosinophils Percent Auto 0.9 % (0-4.4); Hematocrit 38.8 % (37.0-47.0); Immature Granulocyte Absolute 0.01 K/mm3 (0.00-0.031); Immature Granulocyte Percent A 0.2 % (0-0.5); Lymphocytes Absolute Auto 1.26 K/mm3 (0.9-3.2); Lymphocytes Percent Auto 19.1 % (18.3-44.2); Mean Corpuscular HGB Conc 33.5 g/dl (32-36); Mean Corpuscular Hemoglobin 30.2 pg (26-34); Mean Platelet Volume 8.8 fl (7.4-10.4); Monocytes Absolute Auto 0.4 K/mm3 (0.1-0.6); Monocytes Percent Auto 6.4 % (2.6-8.5); Neutrophils Absolute Auto 4.8 K/mm3 (1.3-6.7); Neutrophils Percent Auto 73.1 % (45.5-73.1); Platelet Count Result 241 k/mm3 (150-375); Red Blood Count 4.31 M/mm3 (4.2-5.4); Red Cell Distribution Width 12.8 % (11.5-14.5); White Blood Count 6.6 K/mm3 (4.5-10.0)
[2023-12-02 12:57] LABS: Cholesterol 158 mg/dL (0-200); HDL Direct 45 mg/dL; Triglycerides 135 mg/dL (<150)
[2023-12-02 13:03] LABS: Alanine Aminotransferase 18 U/L (6-35); Albumin Level 4.4 g/dL (3.5-5.1); Alkaline Phosphatase 98 U/L (38-126); Anion Gap 9 mmol/L (4-12); Aspartate Amino Transferase 29 U/L (14-36); Bilirubin,Total 0.5 mg/dL (0.2-1.3); Blood Urea Nitrogen 16 mg/dL (7-17); Calcium 9.7 mg/dL (8.4-10.2); Carbon Dioxide 26 mmol/L (22-30); Chloride 102 mmol/L (98-107); Estimated Glomerular Filt Rate > 60; Glucose 106 mg/dL (65-110); Potassium 4.8 mmol/L (3.4-5.0); Sodium 137 mmol/L (137-145)
[2023-12-02 13:10] LABS: LDL Cholesterol Direct 67 mg/dL
[2023-12-02 13:24] LABS: Hemoglobin A1C 5.4 % (<5.7)
[2023-12-03 11:44] LABS: CA 15-3 14 U/mL (<32)
== END 2023-12-02 11:55 | disposition home or self-care (01) ==
LOC: ANHLAB 11:55
PROVIDERS: PCP Nurse Practitioner Family; Visit Provider Internal Medicine Hematology & Oncology
DX: E78.2 Mixed hyperlipidemia (principal); I10 Essential (primary) hypertension; R73.01 Impaired fasting glucose; Z79.899 Other long term (current) drug therapy; C50.512 Malignant neoplasm of lower-outer quadrant of left female breast
CPT/HCPCS: 36415; 80053; 80061; 83036; 85025; 86300

== ENCOUNTER 2024-01-29 13:27 | Outpatient (CLI) | payer MEDICARE, SELFPAY ==
--- NOTE | ~2024-01-29 | DEXA_ITS ---
Bone Density Report Name: ANAHY RATLIFF Age: 78 Sex: Female Ethnicity: White Date of : 1945 Indication: postmenopausal; screening for osteoporosis; height loss; hysterectomy; Referring Provider: ROLLY GUERRA Study: Bone densitometry was performed. Exam Date: January 29, 2024 Accession number: [id number] Bone Density: Region BMD T-score Z-score Classification AP Spine(L1-L4) 0.909 -1.3 1.4 Osteopenia Femoral Neck (Left) 0.469 -3.4 -1.2 Osteoporosis Total Hip (Left) 0.600 -2.8 -0.8 Osteoporosis Femoral Neck (Right) 0.487 -3.3 -1.0 Osteoporosis Total Hip (Right) 0.574 -3.0 -1.0 Osteoporosis Total Hip Mean 0.587 -2.9 -0.9 Osteoporosis World Health Organization criteria for BMD impression classify patients as: Normal (T-score at or above -1.0), Osteopenia (T-score between -1.0 and -2.5), or Osteoporosis (T-score at or below -2.5). 10-year Fracture Risk: FRAX not reported because: Some T-score for Spine Total or Hip Total or Femoral Neck at or below -2.5 Clinical Information Provided by Patient: Has used the following medications: Vitamin D, Calcium Has the following medical conditions: Hysterectomy Patient maximum height was 62.0 No regular weight bearing exercise Does not regularly consume dairy products Drinks caffeinated beverages Onset of menses at age 13 Number of children 2 Impression: The patient has osteoporosis, based on the Left Femoral Neck T-score. Discussion: INCREASED RISK OF FRACTURE. BONE DENSITY IS UNDESIRABLY LOW AT ONE OR MORE SKELETAL SITES, CONSISTENT WITH POSTMENOPAUSAL OSTEOPOROSIS. This patient's lowest T-score meets the World Health Organization's (WHO) criteria for osteoporosis at one or more sites (T-score -2.5 or below). In untreated patients, the risk of osteoporotic fracture increases approximately two-fold for each 1.0 SD decrease in T-score. Low bone density is not the only risk factor for fracture; also consider factors such as patient's age, frailty or poor health, risk of falling, risk of injury, previous osteoporotic fracture, family history of osteoporosis, cigarette smoking, low body weight, etc. Not everyone with low bone mineral density has osteoporosis; osteomalacia and other metabolic bone disorders should also be considered. Patients who have osteoporosis should be evaluated for specific diseases and conditions (secondary causes) that may cause or contribute to bone loss. The [place] Association [employer] Clinical Endocrinologists (AACE) and National Osteoporosis Foundation (NOF) recommend pharmacologic intervention for all postmenopausal women whose T-score is in this range. The patient should follow a healthful lifestyle (good nutrition with adequate calcium and vitamin D, and appropriate weight-bearing exercise). Follow-Up: Consider a repeat BMD and Vertebral Fracture Assessment (VFA) exam in 2 years or sooner if medically necessary, to reassess this patient's status. Reported by: NHUNG on 01/29/2024 1:59:00 PM. Reviewed, dictated and finalized at location AWenceslao ETIENNE
== END 2024-01-29 13:28 | disposition home or self-care (01) ==
LOC: ANHIMG 13:29
PROVIDERS: PCP Nurse Practitioner Family; Visit Provider Nurse Practitioner Family
DX: M81.0 Age-related osteoporosis without current pathological fracture (principal); M85.88 Other specified disorders of bone density and structure, other site; Z13.820 Encounter for screening for osteoporosis; Z78.0 Asymptomatic menopausal state
CPT/HCPCS: 77080

== ENCOUNTER 2024-08-20 12:29 | Outpatient (CLI) | payer MEDICARE, SELFPAY ==
--- OUTSIDE RECORDS SUMMARY | 2024-08-20 12:33 | XMS_ITS | Clinical Summary ---
Author Organization [facility] Address [facility] [place] [address] Care Team Providers Care Pelt Inspector Name Role Phone Tierney Maldonado NP Primary Care Provider [phone] Allergies No known active allergies Medications acetaminophen (TYLENOL) 500 mg tablet Take 2 tablets (1,000 mg total) by mouth 4 Active alendronate (FOSAMAX) 70 mg tablet TAKE 1 TABLET BY MOUTH WEEKLY IN MORNING WITH A FULL GLASS OF WATER. Active amLODIPine (NORVASC) 5 mg tablet 2 Active atorvastatin (LIPITOR) 40 mg tablet Take 1 tablet (40 mg total) by mouth nightly at bedtime. Active anastrozole (ARIMIDEX) 1 mg tablet Take 1 tablet (1 mg total) by mouth daily 4 Active ibuprofen (ADVIL,MOTRIN) 400 mg tablet Take 1 tablet (400 mg total) by mouth every 6 (six) hours as needed 2 Active indapamide (LOZOL) 2.5 mg tablet 2 Active levothyroxine (SYNTHROID) 50 mcg tablet TAKE 1 TABLET BY MOUTH DAILY AT 6.30 AM Active losartan (COZAAR) 100 mg tablet Take 1 tablet (100 mg total) by mouth daily Active sertraline (ZOLOFT) 25 mg tablet Take 1 tablet (25 mg total) by mouth daily 5 Active traMADoL (ULTRAM) 50 mg tablet Take 1 tablet (50 mg total) by mouth every 6 (six) hours as needed 4 Active donepeziL (ARICEPT) 5 mg tablet Take 1 tablet (5 mg total) by mouth daily after breakfast Take this medication with food or within 30 minutes after a meal 30 tablet 6 5 Active Active Problems No known active problems Encounters Date Type Department Care Team Description 06/22/2024 1:56 PM CDT - 06/22/2024 11:59 PM CDT Hospital Encounter [facility] ([facility]) [address] [place] [id number] Discharge Disposition: Discharge to home or self care 06/22/2024 1:56 PM CDT - 06/22/2024 11:59 PM CDT Hospital Encounter [facility] ([facility]) [address] [place] [id number] Memory loss Discharge Disposition: Discharge to home or self care 06/22/2024 1:56 PM CDT - 06/22/2024 11:59 PM CDT Hospital Encounter [facility] ([facility]) [address] [place] [id number] Memory loss Discharge Disposition: Discharge to home or self care 05/26/2024 Orders Only [facility] [address] [place] [address] Austen Leos MD Peroneal neuropathy, right (Primary Dx) 05/25/2024 9:00 AM CDT Office Visit [facility] [address] [place] [address] Advanced Medicine 6th [place] [address] [place] [address] Austen Leos MD Memory loss (Primary Dx); Altered mental status, unspecified altered mental status type; Peroneal neuropathy, right from Last 3 Months Medical History Medical History Date Comments Age related osteoporosis Hypertension Breast cancer (HCC) Mixed hyperlipidemia Hypothyroid Family History Medical History Relation Name Comments Heart disease Father Alzheimer's disease Mother Diabetes Mother Relation Name Status Comments Father Mother Social History Tobacco Use Types Packs/Day Years Used Date Smoking Tobacco: Former Cigarettes Tobacco Cessation:Counseling Given: No Comments Unknown Sex and Gender Information Value Date Recorded Sex Assigned at Not on file Legal Sex Female 2:13 PM [employer] Gender Identity Female 05/25/2024 11:55 AM CDT Sexual Orientation Straight 05/25/2024 11 :55 AM CDT Obstetrics History Last Filed Vital Signs Vital Sign Reading Time Taken Comments Blood Pressure 148/70 05/25/2024 9:13 AM CDT Pulse 66 05/25/2024 9:13 AM CDT Temperature - - Respiratory Rate - - Oxygen Saturation - - Inhaled Oxygen Concentration - - Weight 68 kg (150 lb) 06/22/2024 3:36 PM CDT Height 142.2 cm (4' 8) 06/22/2024 3:36 PM CDT Body Mass Index 33.63 06/22/2024 3:36 PM CDT Plan of Treatment Health Maintenance Due Date Last Done Comments Depression Screening 1945 Fall Risk Assessment 1945 Hepatitis C Screening 1945 Osteoporosis Screening-Bone Density Scan 1945 Hepatitis B Screening 1962 Zoster Vaccine (1 of 2) 10/28/1963 Well Visit 65+ 2009 Pneumococcal vaccine 65+ (2 of 2 - PPSV23) 07/02/2016 05/07/2016 Covid-19 Vaccine (7 - Pfizer risk 2023- season) 2024 10/29/2023, 12/04/2022, 09/29/2021, Additional history exists DTaP/Tdap/Td Vaccine (2 - Td or Tdap) 06/03/2033 06/04/2023 Influenza Vaccine Completed 10/29/2023, , 2021, Additional history exists Procedures Procedure Name Priority Date/Time Associated Diagnosis Comments MRI BRAIN AND VOLUMETRIC W WO CONTRAST Schedule Routine, Read Routine (OP Routine) 06/22/2024 4:42 PM CDT Memory loss PET/CT AMYLOID BRAIN Schedule Routine, Read Routine (OP Routine) 06/22/2024 3:55 PM CDT Memory loss from Last 3 Months Results * MRI Brain and Volumetric W WO Contrast (06/22/2024 4:42 PM CDT) Anatomical Region Laterality Modality Head and Neck N/A Magnetic Resonan ce 06/23/2024 10:4 4 AM CDT Impressions 06/23/2024 1:33 PM CDT 1. Volumetric analysis demonstrates nonspecific cortical ellis matter volumes less than 2 standard deviations below the mean, suggestive of a neurodegenerative disorder. Of note, the hippocampal volumes are normal. 2. Solitary right parietal white matter microhemorrhage. 3. Moderate white matter disease. No infarcts. Dictated by: Lewis Washington M.D. The radiology attending physician has personally reviewed this study, and had reviewed and/or edited this written report and agrees with it. Electronically signed by: Douglas Agudelo M.D. Narrative 06/23/2024 1:33 PM CDT EXAMINATION: Magnetic resonance imaging (MRI) of the brain and brainstem without and with contrast HISTORY: Memory loss, possible anti-amyloid therapy candidate. TECHNIQUE: Multiplanar multi-weighted MRI of the brain and brainstem was performed without and with intravenous contrast using a protocol specific to assess patients with memory complaints. T1-weighted sagittal MPRage images of the brain were postprocessed on [employer] Software to generate segmented brain volumes using commercial software. Results were compared to 10th and 90th percentiles of healthy age-/gender-matched population. Graphs were sent to [employer] and vMobo PACS. The protocol specifically includes FLAIR to assess for potential infarcts and white matter lesions associated with vascular cognitive impairment and with susceptibility sensitive sequences for detection of cerebral microhemorrhages. Contrast information: 12 mL Gadoterate Meglumine IV COMPARISON: Same day PET/CT FINDINGS: The scalp and calvarium are normal. The superior sagittal sinus demonstrates normal venous flow. The corpus callosum is normal in shape and signal intensity. The posterior fossa is unremarkable. The pituitary and sella are normal. The brainstem and craniocervical junction are unremarkable. Diffusion weighted images reveal no hyperintensities to suggest acute cerebral infarction. The ventricles are normal in size and position without evidence of hydrocephalus. Mild paranasal sinus disease. The visualized portions of the mastoids are unremarkable. The orbits appear normal. Normal flow voids are demonstrated in the carotid arteries and basilar artery. There is no abnormal contrast enhancement. QUANTITATIVE ASSESSMENT: Assessment of hippocampal volumes: Quantitative assessment was performed using [id number] and is reported. Volumetric analysis demonstrates cortical ellis matter, temporal lobe ellis matter volume is less than 2 standard deviations below the mean. The total brain volumes are between 3rd and 10th percentile. The hippocampal volumes are within normal limits above the 50th percentile. QUALITATIVE ASSESSMENT: Small infarcts (< 15 mm): None. Infarcts (>15 mm): No. White matter hyperintensities (Fazekas grade): Moderate/Fazekas 2: Beginning confluency of lesions (bridging). Prior cerebral microhemorrhages: No prior exam is available to allow for adequate comparison. New/incident cerebral microhemorrhages: 1 new MCH. Total cerebral microhemorrhages: 1 MCH. Right parietal white matter. Prior siderosis: no prior exam available for adequate comparison. New/incident siderosis: None. Procedure Note Douglas Agudelo MD PhD - 06/23/2024 EXAMINATION: Magnetic resonance imaging (MRI) of the brain and brainstem without and with contrast HISTORY: Memory loss, possible anti-amyloid therapy candidate. TECHNIQUE: Multiplanar multi-weighted MRI of the brain and brainstem was performed without and with intravenous contrast using a protocol specific to assess patients with memory complaints. T1-weighted sagittal MPRage images of the brain were postprocessed on [employer] Software to generate segmented brain volumes using commercial software. Results were compared to 10th and 90th percentiles of healthy age-/gender-matched population. Graphs were sent to [employer] and [employer] PACS. The protocol specifically includes FLAIR to assess for potential infarcts and white matter lesions associated with vascular cognitive impairment and with susceptibility sensitive sequences for detection of cerebral microhemorrhages. Contrast information: 12 mL Gadoterate Meglumine IV COMPARISON: Same day PET/CT FINDINGS: The scalp and calvarium are normal. The superior sagittal sinus demonstrates normal venous flow. The corpus callosum is normal in shape and signal intensity. The posterior fossa is unremarkable. The pituitary and sella are normal. The brainstem and craniocervical junction are unremarkable. Diffusion weighted images reveal no hyperintensities to suggest acute cerebral infarction. The ventricles are normal in size and position without evidence of hydrocephalus. Mild paranasal sinus disease. The visualized portions of the mastoids are unremarkable. The orbits appear normal. Normal flow voids are demonstrated in the carotid arteries and basilar artery. There is no abnormal contrast enhancement. QUANTITATIVE ASSESSMENT: Assessment of hippocampal volumes: Quantitative assessment was performed using [id number] and is reported. Volumetric analysis demonstrates cortical ellis matter, temporal lobe ellis matter volume is less than 2 standard deviations below the mean. The total brain volumes are between 3rd and 10th percentile. The hippocampal volumes are within normal limits above the 50th percentile. QUALITATIVE ASSESSMENT: Small infarcts (< 15 mm): None. Infarcts (>15 mm): No. White matter hyperintensities (Fazekas grade): Moderate/Fazekas 2: Beginning confluency of lesions (bridging). Prior cerebral microhemorrhages: No prior exam is available to allow for adequate comparison. New/incident cerebral microhemorrhages: 1 new MCH. Total cerebral microhemorrhages: 1 MCH. Right parietal white matter. Prior siderosis: no prior exam available for adequate comparison. New/incident siderosis: None. IMPRESSION: 1. Volumetric analysis demonstrates nonspecific cortical ellis matter volumes less than 2 standard deviations below the mean, suggestive of a neurodegenerative disorder. Of note, the hippocampal volumes are normal. 2. Solitary right parietal white matter microhemorrhage. 3. Moderate white matter disease. No infarcts. Dictated by: Lewis Washington M.D. The radiology attending physician has personally reviewed this study, and had reviewed and/or edited this written report and agrees with it. Electronically signed by: Douglas Agudelo M.D. 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 General comments on amyloid-PET interpretation: A negative amyloid-PET study indicates sparse to no neuritic plaques and is inconsistent with Alzheimer disease at the time of the study. A negative study reduces the likelihood that the patient's cognitive impairment is due to Alzheimer disease. A positive amyloid-PET study indicates moderate to frequent neuritic plaques which is the amount present in patients with Alzheimer disease. However, a positive amyloid-PET study does not establish the diagnosis of Alzheimer disease. Moderate to frequent neuritic plaques can also be present in patients with other neurological conditions as well as in older people with normal cognition. Dictated by: Pablo Morfin MD The radiology attending physician has personally reviewed this study, and had reviewed and/or edited this written report and agrees with it. Electronically signed by: Tawanna Thomas MD, Ph.D Narrative 06/22/2024 4:18 PM CDT EXAMINATION: BRAIN AMYLOID-PET/CT IMAGING DATE OF STUDY: 06/22/2024 SCANNER: [facility] [employer] Vision (NV1). RADIOPHARMACEUTICAL: 11.9 mCi F-18 florbetapir i.v. HISTORY: 78-year-old woman undergoing evaluation for cognitive impairment. TECHNIQUE: At 30 minutes after injection of tracer, non-contrast CT images of the head were obtained for attenuation correction and for fusion with emission PET images to allow for anatomical localization of PET findings. Standard emission PET imaging of the brain was then performed. The study was interpreted on the myOrder workstation. COMPARISON CT/MRI: None. FINDINGS: There is normal cortical-white matter contrast in the cerebellum. There is decreased cortical-white matter contrast involving the bilateral parietal, temporal, and frontal lobes. Incidental CT findings: None. Procedure Note Tawanna Hogan MD PhD - 06/22/2024 EXAMINATION: BRAIN AMYLOID-PET/CT IMAGING DATE OF STUDY: 06/22/2024 SCANNER: [facility] [employer] Vision (NV1). RADIOPHARMACEUTICAL: 11.9 mCi F-18 florbetapir i.v. HISTORY: 78-year-old woman undergoing evaluation for cognitive impairment. TECHNIQUE: At 30 minutes after injection of tracer, non-contrast CT images of the head were obtained for attenuation correction and for fusion with emission PET images to allow for anatomical localization of PET findings. Standard emission PET imaging of the brain was then performed. The study was interpreted on the myOrder workstation. COMPARISON CT/MRI: None. FINDINGS: There is normal cortical-white matter contrast in the cerebellum. There is decreased cortical-white matter contrast involving the bilateral parietal, temporal, and frontal lobes. Incidental CT findings: None. 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 General comments on amyloid-PET interpretation: A negative amyloid-PET study indicates sparse to no neuritic plaques and is inconsistent with Alzheimer disease at the time of the study. A negative study reduces the likelihood that the patient's cognitive impairment is due to Alzheimer disease. A positive amyloid-PET study indicates moderate to frequent neuritic plaques which is the amount present in patients with Alzheimer disease. However, a positive amyloid-PET study does not establish the diagnosis of Alzheimer disease. Moderate to frequent neuritic plaques can also be present in patients with other neurological conditions as well as in older people with normal cognition. Dictated by: Pablo Morfin MD The radiology attending physician has personally reviewed this study, and had reviewed and/or edited this written report and agrees with it. Electronically signed by: Tawanna Thomas MD, Ph.D [facility] PET PROCEDURES Final Re sult from Last 3 Months Insurance ([place]) [address] MEDICARE [address] MEDICARE Care Teams Pelt Inspector Relationship Specialty Start Date End Date Tierney Maldonado NP [address] [place] [address] PCP - General Nurse Practitioner 01/29/24
--- OUTSIDE RECORDS SUMMARY | 2024-08-20 12:33 | XMS_ITS | Referral Summary ---
Author Organization [facility] Address [address] [place] [address] Care Team Providers Care Mobile Paint Specialist Name Role Phone Tierney Maldonado NP Primary Care Provider [phone] Encounters Date Type Department Care Team Description 06/22/2024 1:56 PM CDT - 06/22/2024 11:59 PM CDT Hospital Encounter [facility] ([facility]) [address] [place] [address] Discharge Disposition: Discharge to home or self care 06/22/2024 1:56 PM CDT - 06/22/2024 11:59 PM CDT Hospital Encounter [facility] ([facility]) [address] [place] [address] Memory loss Discharge Disposition: Discharge to home or self care 06/22/2024 1:56 PM CDT - 06/22/2024 11:59 PM CDT Hospital Encounter [facility] ([facility]) [address] [place] [address] Memory loss Discharge Disposition: Discharge to home or self care 05/26/2024 Orders Only [facility] [facility] First Floor [address] [place] [address] Austen Leos MD Peroneal neuropathy, right (Primary Dx) 05/25/2024 9:00 AM CDT Office Visit [facility] [address] [facility] 6th [place] [address] [place] [address] Austen Leos MD Memory loss (Primary Dx); Altered mental status, unspecified altered mental status type; Peroneal neuropathy, right from Last 3 Months Allergies No known active allergies Medications acetaminophen [...] Active Active Problems No known active problems Social History Tobacco Use Types Packs/Day Years Used Date Smoking Tobacco: Former Cigarettes Tobacco Cessation:Counseling Given: No Comments Unknown Sex and Gender Information Value Date Recorded Sex Assigned at Not on file 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 Results were compared to 10th and 90th percentiles of healthy age-/gender-matched population. Graphs were sent to [facility] and AisleFinder PACS. The protocol specifically includes FLAIR to [...] hippocampal volumes: Quantitative assessment was performed using SyngFace-Me and is reported. Volumetric analysis demonstrates cortical [...] images of the brain were postprocessed on SyngGeenapp to generate segmented brain volumes using commercial software. Results were compared to 10th and 90th percentiles of healthy age-/gender-matched population. Graphs were sent to [employer] and Aisle[employer] PACS. The protocol specifically includes FLAIR to [...] hippocampal volumes: Quantitative assessment was performed using SyngFace-Me and is reported. Volumetric analysis demonstrates cortical [...] Douglas Agudelo M.D. us Austen Leos MD IMG MRI PROCEDURES Final Re sult * PET/CT [...] AMYLOID-PET/CT IMAGING DATE OF STUDY: 06/22/2024 SCANNER: [facility] S[employer] (NV1). RADIOPHARMACEUTICAL: 11.9 mCi F-18 florbetapir i.v. [...] performed. The study was interpreted on the Visionary Mobile workstation. COMPARISON CT/MRI: None. FINDINGS: There is normal cortical-white matter contrast in the cerebellum. There is decreased cortical-white matter contrast involving the bilateral parietal, temporal, and frontal lobes. Incidental CT findings: None. Procedure Note Tawanna Hogan MD PhD - 06/22/2024 EXAMINATION: BRAIN AMYLOID-PET/CT IMAGING DATE OF STUDY: 06/22/2024 SCANNER: [facility] [employer] (NV1). RADIOPHARMACEUTICAL: 11.9 mCi F-18 florbetapir i.v. [...] performed. The study was interpreted on the Visionary Mobile workstation. COMPARISON CT/MRI: None. FINDINGS: There is [...] Electronically signed by: Tawanna Thomas MD, Ph.D Austen Leos MD IMG PET PROCEDURES Final Re sult from Last 3 Months Insurance AETNA MEDICARE A[facility]NA [facility]ARE [facility] Address: [facility] [id number] [place] [address] Care Teams Mobile Paint Specialist Relationship Specialty Start Date End Date Tierney Maldonado NP [address] [place] [address] PCP - General Nurse Practitioner 01/29/24
[2024-08-20 13:40] LABS: Thyroid Stimulating Hormone 1.140 uIU/mL (0.465-4.680)
== END 2024-08-20 12:30 | disposition home or self-care (01) ==
LOC: ANHLAB 12:31
PROVIDERS: PCP Nurse Practitioner Family; Visit Provider Nurse Practitioner Family
DX: E03.9 Hypothyroidism, unspecified (principal); E55.9 Vitamin D deficiency, unspecified
CPT/HCPCS: 36415; 82306; 84443

== ENCOUNTER 2024-09-09 10:30 | Outpatient (CLI) | payer MEDICARE, SELFPAY ==
[2024-09-09 10:50] LABS: Hematocrit 39.8 % (37.0-47.0); Hemoglobin 13.4 g/dL (12.0-15.0); Immature Granulocyte Percent A 0.2 % (0-0.5); Lymphocytes Absolute Auto 1.37 K/mm3 (0.9-3.2); Mean Corpuscular HGB Conc 33.7 g/dl (32-36); Mean Corpuscular Hemoglobin 30.8 pg (26-34); Mean Corpuscular Volume 91.5 fl (80-100); Nucleated Red Blood Cells Absolute Auto 0.000 K/mm3 (0.0-0.012); Nucleated Red Blood Cells Perc 0.0 % (0.0-0.2); Platelet Count Result 200 k/mm3 (150-375); Red Blood Count 4.35 M/mm3 (4.2-5.4); White Blood Count 6.0 K/mm3 (4.5-10.0)
--- OUTSIDE RECORDS SUMMARY | 2024-09-09 11:03 | XMS_ITS | Clinical Summary ---
Author Organization [facility] Address [facility] [place] [address] Care Team Providers Care Collar Stay Fuser Tender Name Role Phone Tierney Maldonado NP Primary Care Provider [phone] Allergies No known active allergies Medications acetaminophen [...] - 06/22/2024 11:59 PM CDT Hospital Encounter [facility] ([facility]) [address] [place] [address] Discharge Disposition: Discharge to home or self care 06/22/2024 1:56 PM CDT - 06/22/2024 11:59 PM CDT Hospital Encounter [facility] ([facility]) [address] [place] [address] Memory loss Discharge Disposition: Discharge to home or self care 06/22/2024 1:56 PM CDT - 06/22/2024 11:59 PM CDT Hospital Encounter [facility] ([facility]) [address] [place] [address] Memory loss Discharge Disposition: Discharge to home or self care from Last 3 Months Medical History Medical [...] on file 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 Results were compared to 10th and 90th percentiles of healthy age-/gender-matched population. Graphs were sent to [employer] and [employer] PACS. The protocol specifically includes FLAIR to [...] hippocampal volumes: Quantitative assessment was performed using FIGS and is reported. Volumetric analysis demonstrates cortical [...] images of the brain were postprocessed on World Blender to generate segmented brain volumes using commercial software. Results were compared to 10th and 90th percentiles of healthy age-/gender-matched population. Graphs were sent to [employer] and [employer] PACS. The protocol specifically includes FLAIR to [...] hippocampal volumes: Quantitative assessment was performed using FIGS and is reported. Volumetric analysis demonstrates cortical [...] AMYLOID-PET/CT IMAGING DATE OF STUDY: 06/22/2024 SCANNER: [facility] [employer] (NV1). RADIOPHARMACEUTICAL: 11.9 mCi F-18 florbetapir i.v. [...] performed. The study was interpreted on the Bandwidth workstation. COMPARISON CT/MRI: None. FINDINGS: There is normal cortical-white matter contrast in the cerebellum. There is decreased cortical-white matter contrast involving the bilateral parietal, temporal, and frontal lobes. Incidental CT findings: None. Procedure Note Tawanna Hogan MD PhD - 06/22/2024 EXAMINATION: BRAIN AMYLOID-PET/CT IMAGING DATE OF STUDY: 06/22/2024 SCANNER: [employer] (NV1). RADIOPHARMACEUTICAL: 11.9 mCi F-18 florbetapir i.v. [...] performed. The study was interpreted on the Bandwidth workstation. COMPARISON CT/MRI: None. FINDINGS: There is [...] from Last 3 Months Insurance AETNA MEDICARE [address] MEDICARE Care Teams Collar Stay Fuser Tender Relationship Specialty Start Date End Date Winter, Tierney Adams NP [address] [facility] [address] [place] [address] PCP - General Nurse Practitioner 01/29/24
--- OUTSIDE RECORDS SUMMARY | 2024-09-09 11:03 | XMS_ITS | Referral Summary ---
Author Organization [facility] Address [address] [place] [address] Care Team Providers Care Parts Professional Name Role Phone Tierney Maldonado NP Primary Care Provider [phone] Encounters Date Type Department Care Team Description 06/22/2024 1:56 PM CDT - 06/22/2024 11:59 PM CDT Hospital Encounter [facility] ([facility]) [address] [place] [address] Discharge Disposition: Discharge to home or self care 06/22/2024 1:56 PM CDT - 06/22/2024 11:59 PM CDT Hospital Encounter [facility]) [address] [place] [address] Memory loss Discharge Disposition: Discharge to home or self care 06/22/2024 1:56 PM CDT - 06/22/2024 11:59 PM CDT Hospital Encounter [facility] ([facility]) [address] [place] [address] Memory loss Discharge Disposition: Discharge to home or self care from Last 3 Months Allergies No known active allergies Medications acetaminophen (TYLENOL) 500 mg tablet Take 2 tablets (1,000 mg total) by mouth Active alendronate (FOSAMAX) 70 mg tablet TAKE [...] on file 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 Results were compared to 10th and 90th percentiles of healthy age-/gender-matched population. Graphs were sent to [employer] and Dotted Block PACS. The protocol specifically includes FLAIR to [...] hippocampal volumes: Quantitative assessment was performed using Azullo and is reported. Volumetric analysis demonstrates cortical [...] images of the brain were postprocessed on Dallen Medical to generate segmented brain volumes using commercial software. Results were compared to 10th and 90th percentiles of healthy age-/gender-matched population. Graphs were sent to [employer] and Dotted Block PACS. The protocol specifically includes FLAIR to [...] hippocampal volumes: Quantitative assessment was performed using NVMdurance Via and is reported. Volumetric analysis demonstrates cortical [...] Douglas Agudelo M.D. us Austen Leos MD IMTashi MRI PROCEDURES Final Re sult * PET/CT [...] AMYLOID-PET/CT IMAGING DATE OF STUDY: 06/22/2024 SCANNER: [employer] (NV1). RADIOPHARMACEUTICAL: 11.9 mCi F-18 florbetapir i.v. [...] performed. The study was interpreted on the [employer] Holdings workstation. COMPARISON CT/MRI: None. FINDINGS: There is normal cortical-white matter contrast in the cerebellum. There is decreased cortical-white matter contrast involving the bilateral parietal, temporal, and frontal lobes. Incidental CT findings: None. Procedure Note Tawanna Hogan MD PhD - 06/22/2024 EXAMINATION: BRAIN AMYLOID-PET/CT IMAGING DATE OF STUDY: 06/22/2024 SCANNER: [facility] [employer] (NV1). RADIOPHARMACEUTICAL: 11.9 mCi F-18 florbetapir [...] performed. The study was interpreted on the [employer] Holdings workstation. COMPARISON CT/MRI: None. FINDINGS: There is [...] Re sult from Last 3 Months Insurance AET MEDICARE AENA MEDICARE Care Teams Parts Professional Relationship Specialty Start Date End Date Tierney Maldonado NP [address] [place] [address] PCP - General Nurse Practitioner 01/29/24
--- OUTSIDE RECORDS SUMMARY | 2024-09-09 11:03 | XMS_ITS | Encounter Summary ---
Author Organization [facility] Address [address] [place] [address] Care Team Providers Care Bisque Grader Name Role Phone Cristian Brown MD Primary Care Provider [phone] Reason for Visit * Reason Onset Date Comments Medication Refill 09/08/2024 Encounter Details Date Type Department Care Team (Late Contact Info) Description 09/08/2024 Refill [facility] Oncology and Hematology [place] [address] [place] [address] Chaka Sheehan MD [address] [place], [place] [address] [address] [address] Social History Tobacco Use Types Packs/Day Years Used Date Smoking Tobacco: Former Cigarettes Q uit: 1982 Smokeless Tobacco: Never Alcohol Use Standard Drinks/Week Comments Never 0 (1 standard drink = 0.6 oz pur e alcohol) Comments No Sex and Gender Information Value Date Recorded Sex Assigned at Not on file Legal Sex Female 10:46 AM CDT Gender Identity Not on file Sexual Orientation Not on file documented as of this encounter Plan of Treatment Upcoming Encounters Date Type Department Care Team (Late Contact Info) Description 09/15/2024 10:15 AM CDT Office Visit [facility] Oncology [facility] Hematology [facility] [address] [place] [address] Chaka Sheehan MD [facility] [address] [place] [address] 10/20/2024 1:00 PM CDT Appointment [facility] [address] [place] [address] [place] [address] [facility] [address] [place] [address] 10/20/2024 2:00 PM CDT Office Visit [facility] Breast Surgery [address] [address] [facility] [address] [place] [address] [place] [address] [facility] [address] [place] [address] documented as of this encounter Visit Diagnoses Not on filedocumented in this encounter Care Teams Bisque Grader Relationship Specialty Start Date End Date Cristian Brown MD PCP - General Family Practice 08/03/22 documented as of this encounter
--- OUTSIDE RECORDS SUMMARY | 2024-09-09 11:03 | XMS_ITS | Clinical Summary ---
Author Organization [facility] Address [address] [place] [address] Care Team Providers Care Care Services Manager Name Role Phone Cristian Brown MD Primary Care Provider [phone] Allergies Active Allergy Reactions Criticality Noted Date Comments Methocarbamol Confusion High 10/15/2023 Lost all memory of who she was and didn't recognize any one around her Medications amLODIPine (NORVASC) 5 mg tablet 2 Active losartan (COZAAR) 100 mg tablet 2 Active indapamide (LOZOL) 2.5 mg tablet 2 Active levothyroxine 50 mcg tablet 2 Active atorvastatin (LIPITOR) 40 mg tablet 2 Active alendronate sodium (ALENDRONATE ORAL) Take by mouth. Active MULTIVITAMIN ORAL Take by mouth. Active ergocalciferol, vitamin D2, (VITAMIN D ORAL) Take by mouth. Active ibuprofen (MOTRIN) 400 mg tablet Take 1 Tablet (400 mg) by mouth every 6 hours as needed for mild to moderate pain. 30 Tablet 12/25/2021 3:15 PM DATA COMMUNICATIONS SOFTWARE CONSULTANT 2 Active fluticasone propionate (FLONASE) 50 mcg/spray [place], Suspension nasal inhaler 3 Active acetaminophen (TYLENOL) 500 mg tablet Take 1,000 mg by mouth. 4 Active anastrozole (Arimidex) 1 mg tablet Take 1 Tablet (1 mg) by mouth daily. 30 Tablet 5 Active anastrozole (Arimidex) 1 mg tablet Take 1 Tablet (1 mg) by mouth daily. 90 Tablet 6 4 09/09/19 25 Discontinu ed(Reorder ) Active Problems Patient Care Coordination No te Formatting of this note migh t be different from the original. Primary Care: Cristian Brown MD Referring Provider: [place] [address] [facility] [address] [place] [address] Other: Dr. Carmel Soliz MD Problem Noted Date Diagnosed Date History of left breast cancer 10/09/2022 Aromatase inhibitor use 04/10/2022 Malignant neoplasm of lower- outer quadrant of left breast of female, estrogen receptor positive 10/26/2021 Encounters Date Type Department Care Team Description 09/08/2024 [facility] Oncology and Hematology [facility] [address] [place] [address] Chaka Sheehan MD 08/27/2024 [facility] Oncology and [facility] [address] [place] [address] Chaka Sheehan MD 08/26/2024 External Device Data STL ABSTRACTION Provider, Abstract 08/25/2024 External Device Data ST[facility] ABSTRACTION Provider, Abstract 08/04/2024 External Device Data ST[facility] ABSTRACTION Provider, Abstract 07/14/2024 External Device Data ST[facility] ABSTRACTION Provider, Abstract 07/07/2024 External Device Data STL ABSTRACTION Provider, Abstract 07/02/2024 External Device Data STL ABSTRACTION Provider, Abstract 07/01/2024 External Device Data STL ABSTRACTION Provider, Abstract 06/30/2024 External Device Data STL ABSTRACTION Provider, Abstract from Last 3 Months Family History Medical History Relation Name Comments Heart Disease Brother 1 Breast Cancer Daughter Heart Disease Father Breast Cancer Mother Cancer Mother Breast Cancer Sister 1 Cancer Sister 2 Relation Name Status Comments Brother 1 Brother 2 Alive Brother 3 Daughter Father Mother Sister 1 Alive Sister 2 Alive Social History Tobacco Use Types Packs/Day Years Used Date Smoking Tobacco: Former Cigarettes Q uit: 1982 Smokeless Tobacco: Never Tobacco Cessation:Counseling Given: Not Answered Alcohol Use Standard Drinks/Week Comments Never 0 (1 standard drink = 0.6 oz pur e alcohol) Comments No Sex and Gender Information Value Date Recorded Sex Assigned at Not on file Legal Sex Female 10:46 AM CDT Gender Identity Not on file Sexual Orientation Not on file Last Filed Vital Signs Vital Sign Reading Time Taken Comments Blood Pressure 161/80 12/09/2023 1:04 PM CDT Pulse 80 12/09/2023 12:58 PM CDT Temperature 36.1 C (96.9 F) 12/09/2023 12:58 PM CDT Respiratory Rate 16 12/09/2023 12:5 8 PM CDT Oxygen Saturation 97% 08/07/2023 11: 42 AM CDT Inhaled Oxygen Concentration - - Weight 65.2 kg (143 lb 12.8 oz) 024 12:58 PM CDT Height 157.5 cm (5' 2) 10/15/2023 1:07 PM CDT Body Mass Index 26.3 10/15/2023 1:07 PM CDT Plan of Treatment Upcoming Encounters Date Type Department Care Team (Late st Contact Info) Description 09/15/2024 10:15 AM CDT Office Visit [facility] Oncology and Hematology - [place] [address] [place] [address] [facility] [address] [place] [address] Chaka Sheehan MD [address] [facility] [address] [place] [address] 10/20/2024 1:00 PM CDT [facility] [address] [address] [place] [address] [place] [address] [facility] [address] [place] [address] 10/20/2024 2:00 PM CDT Office Visit [facility] Breast Surgery [address] [address] [facility] [address] [place] [address] [place] [address] [facility] [address] [place] [address] Health Maintenance Due Date Last Done Comments ZOSTER VACCINE (1 of 2) 1994 OSTEOPOROSIS SCREENING 2009 PNEUMOCOCCAL VACCINE 50+ YEA RS (2 of 2 - PCV20 or PCV21) 05/07/2017 05/07/2016 RSV VACCINE (60+ or ) (1 - 1-dose 75+ series) 10/28/2019 Medicare [place] ([place] Preventative Visit/Annual Wellness Visit 02/12/2024 INFLUENZA VACCINE (#1) 2024 3, 2021, 11/01/2020, Additional history exists DTAP/TDAP/TD VACCINES (2 - T d or Tdap) 06/03/2033 06/04/2023 Medical Devices Implanted Type Area Supply Chain Manager Device Identifier Shelf Expiration Date Model / Serial / Lot Computer Patternmaker Clip [place] Iii Ti Landen Sm 9in [id number] - [id number] Implanted:Qty : 1 on 12/25/2021 by Carmel Soliz MD at [facility] Clip Left: Breast [employer] - COVIDIEN [id number] 07/11/2026 [id number] / / [id number] Insurance AETNA PPO MCR RX OPTUM RX Member Subscriber Plan / Payer (Ef fective 2016-Present) Name:Nahomi Villavicencio Relation to Subscriber:Self Name:Nahomi Villavicencio Payer ID:Not on file Group ID:[id number] Type:RX Medicare Part D Address: [place] AETNA PPO MCR Care Teams Care Services Manager Relationship Specialty Start Date End Date Cristian Brown MD PCP - General Family Practice 08/03/22
[2024-09-09 16:42] LABS: Alanine Aminotransferase 21 U/L (6-35); Albumin Level 4.2 g/dL (3.5-5.1); Alkaline Phosphatase 57 U/L (38-126); Anion Gap 6 mmol/L (4-12); Aspartate Amino Transferase 60 U/L (14-36); Bilirubin,Total 0.5 mg/dL (0.2-1.3); Blood Urea Nitrogen 18 mg/dL (7-17); Calcium 9.8 mg/dL (8.4-10.2); Carbon Dioxide 29 mmol/L (22-30); Chloride 102 mmol/L (98-107); Estimated Glomerular Filt Rate 57; Glucose 97 mg/dL (65-110); Potassium 5.3 mmol/L (3.4-5.0); Sodium 137 mmol/L (137-145); Total Protein 7.7 g/dL (6.3-8.2)
== END 2024-09-09 10:31 | disposition home or self-care (01) ==
LOC: ANHLAB 10:31
PROVIDERS: PCP Nurse Practitioner Family; Visit Provider Internal Medicine Hematology & Oncology
DX: C50.512 Malignant neoplasm of lower-outer quadrant of left female breast (principal); Z17.0 Estrogen receptor positive status [ER+]
CPT/HCPCS: 36415; 80053; 85025; 86300

== ENCOUNTER 2025-02-01 10:09 | Outpatient (CLI) | payer MEDICARE, SELFPAY ==
--- NOTE | ~2025-02-01 | XR_ITS ---
EXAMINATION: XR chest 2V 02/01/2025 11:01 INDICATION: Shortness of breath PROCEDURE: 2 view chest COMPARISON: No prior studies for comparison. FINDINGS: The lungs are clear. The cardiomediastinal silhouette is within normal limits. There are no pleural effusions. There is no pneumothorax suspected. IMPRESSION: 1: NO ACUTE CARDIOPULMONARY DISEASE. Reviewed, dictated and finalized at location O. OR NATUROPATHIC
--- NOTE | ~2025-02-01 | XR_ITS ---
XR lumbar spine min 4V 02/01/2025 11:01 Indication: Low back pain after fall Procedure: 5 views lumbar spine Comparison: CT dated 06/04/2023 Findings: There has been progression of burst fracture of L4. There is a new burst fracture of L3 with approximately 50% loss of vertebral body height. There is advanced multilevel facet hypertrophy. There is disc narrowing at all lumbar levels. Prominent bridging osteophytes noted at multiple levels. There is levoscoliosis. Impression: 1: Interval development of age-indeterminate burst fracture of L3 with approximately 50% loss of vertebral body height. 2: Interval progression of L4 burst fracture compared with CT dated 06/04/2023. 3: Severe lumbar spondylosis with levoscoliosis. Reviewed, dictated and finalized at location O. O NARRATOR Impression: 1: Interval development of age-indeterminate burst fracture of L3 with approxim ately 50% loss of vertebral body height. 2: Interval progression of L4 burst fracture compared with CT dated 06/04/2023. 3: Severe lumbar spondylosis with levoscoliosis.
--- NOTE | ~2025-02-01 | XR_ITS ---
XR hip BI 2V w AP pelvis 02/01/2025 11:01 Indication: Status post fall. Procedure: AP pelvis and 2 views each hip Comparison: 06/04/2023 Findings: There is a probable compression fracture of L4, not well visualized. Mild osteoarthritis of the hips. Pelvic rings intact. Sacral foramen are symmetric. Mild osteoarthritis of the hips. Impression: 1: Probable compression fracture of L4. Recommend correlation with lumbar spine series. 2: Mild osteoarthritis of the hips. Reviewed, dictated and finalized at location O. FLEET MANAGER Impression: 1: Probable compression fracture of L4. Recommend correlation with lumbar spine series. 2: Mild osteoarthritis of the hips.
== END 2025-02-01 10:10 | disposition home or self-care (01) ==
PROVIDERS: PCP Nurse Practitioner Family; Visit Provider Nurse Practitioner Family
DX: R06.02 Shortness of breath (principal); S32.049A Unspecified fracture of fourth lumbar vertebra, initial encounter for closed fracture; M47.816 Spondylosis without myelopathy or radiculopathy, lumbar region; S32.000A Wedge compression fracture of unspecified lumbar vertebra, initial encounter for closed fracture; X58.XXXA Exposure to other specified factors, initial encounter; W19.XXXA Unspecified fall, initial encounter; M16.0 Bilateral primary osteoarthritis of hip
CPT/HCPCS: 71046; 72110; 73521

== ENCOUNTER 2025-02-09 08:19 | Emergency (ER) | payer MEDICARE, SELFPAY ==
--- NOTE | ~2025-02-09 | CT_ITS ---
EXAMINATION: CT lumbar spine wo con DATE: 02/09/2025 10:05 INDICATION: Back pain. TECHNIQUE: Computed tomography (CT) of the lumbar spine was performed without intravenous contrast. Automated exposure control and iterative reconstruction technique were employed. The dose-length product was 379.63 mGy-cm. COMPARISON: CT lumbar spine 06/04/2023, radiographs 02/01/2025 FINDINGS: There is 14 degrees levoscoliosis of thoracolumbar spine. There is a hemangioma in T11 vertebral body. There is a burst fracture of L3 with 3/5 loss of height and retropulsion of bone 5 mm into central spinal canal. There is a chronic burst fracture of L4 with 4/5 loss of height and retropulsion of bone 7 mm into central spinal canal. There is mildly decreased disc height at L3-L4. The following disc levels are specifically discussed: L1-L2: The disc does not extend beyond the endplate margin. There is mild bilateral facet joint osteoarthritis. There is no neural foraminal stenosis. There is no central canal stenosis. L2-L3: The disc is bulging. There is severe bilateral facet joint osteoarthritis. There is moderate right and mild left neural foraminal stenosis. There is mild central canal stenosis. L3-L4: The disc is bulging. There is severe bilateral facet joint osteoarthritis. There is moderate bilateral neural foraminal stenosis. There is severe central canal stenosis. L4-L5: The disc is bulging. There is severe bilateral facet joint osteoarthritis. There is mild bilateral neural foraminal stenosis. There is moderate central canal stenosis. L5-S1: The disc is bulging. There is severe bilateral facet joint osteoarthritis. There is mild bilateral neural foraminal stenosis. There is mild central canal stenosis. IMPRESSION: 1. Acute versus subacute L3 burst fracture, stable from 02/01/2025. 2. Severe lumbar spondylosis. 3. Lumbar levoscoliosis. Reviewed, dictated and finalized at location E. POINT PEN CARTRIDGE TESTER
--- NOTE | ~2025-02-09 | CT_ITS ---
EXAMINATION: CT pelvis wo con DATE: 02/09/2025 10:05 INDICATION: Right hip pain. TECHNIQUE: Computed tomography (CT) of the pelvis was performed without intravenous contrast. Automated exposure control and iterative reconstruction technique were employed. The dose-length product was 182.47 mGy-cm. COMPARISON: CT pelvis 06/25/2023 FINDINGS: There is a chronic burst fracture of L4. There is moderate lower lumbar spondylosis. There is no acute fracture. There is mild osteoarthritis of the hips. IMPRESSION: 1. Mild osteoarthritis of the hips. Reviewed, dictated and finalized at location E. P SHOOTER
--- NOTE | ~2025-02-09 | CT_ITS ---
EXAMINATION: CTA brain carotid DATE: 02/09/2025 10:08 INDICATION: Right leg weakness. TECHNIQUE: Computed tomographic angiography (CTA) of the head was performed without and with 100 mL Omnipaque-350 intravenous contrast. CTA of the neck was performed with intravenous contrast. Automated exposure control and iterative reconstruction technique were employed. The dose-length product was 1459.18 mGy- cm. Maximum intensity projection and volume rendered 3D-reconstructions were created by the technologist on a separate workstation. COMPARISON: Head CT 06/04/2023 FINDINGS: HEAD CTA: There are scattered areas of low attenuation in the cerebral white matter. There is no intracranial hemorrhage, acute infarction, or abnormal intracranial mass lesion. The ventricles are normal in size. There is mild mucosal thickening in the paranasal sinuses. The orbits are normal. The mastoid air cells are normal. The vertebral arteries are codominant. There is no significant stenosis of basilar artery or the posterior cerebral arteries. The posterior communicating arteries are normal. There is no significant stenosis of the intracranial internal carotid arteries or anterior or middle cerebral arteries. Anterior communicating artery is normal. There is no aneurysm. NECK CTA: There is a pneumatocele in right lung upper lobe. There are nodules in the thyroid measuring up to 17 mm. There are no pathologically enlarged lymph nodes. There is no significant stenosis of the vertebral arteries. There is plaque in the proximal internal carotid arteries. There is 0% stenosis of the proximal right internal carotid artery relative to normal distal artery lumen diameter (NASCET criteria). There is 0% stenosis of the proximal left internal carotid artery relative to normal distal artery lumen diameter. There is a hemangioma in C5 vertebral body. There is moderate cervical spondylosis. IMPRESSION: 1. Moderate nonspecific cerebral white matter disease, which likely represents chronic small vessel ischemic disease. 2. No aneurysm or significant intracranial arterial stenosis. 3. 0% stenosis of the proximal internal carotid arteries relative to normal distal artery lumen diameters (NASCET criteria). 4. Multinodular goiter. Consider thyroid ultrasound for risk stratification if clinically indicated given the patient's age. Reviewed, dictated and finalized at location E. RD CLERK IMPRESSION: 1. Moderate nonspecific cerebral white matter disease, which likely represents chronic small vessel ischemic disease. 2. No aneurysm or significant intracranial arterial stenosis. 3. 0% stenosis of the proximal internal carotid arteries relative to normal dis alejandro artery lumen diameters (NASCET criteria). 4. Multinodular goiter. Consider thyroid ultrasound for risk stratification if clinically indicated given the patient's age.
--- OUTSIDE RECORDS SUMMARY | 2025-02-09 08:28 | XMS_ITS | Clinical Summary ---
Author Organization [facility] Address [address] [place] [address] Care Team Providers Care Community Resource Consultant Name Role Phone Unknown, Provider Primary Care Provider Unavaila ble Source Comments [facility],non-owned Affiliates and Associated Physician Practices is amultiple site organization consisting of ambulatory clinics and hospital sitesin [place], [place], [place] and [place]. This disclosure is being madepursuant to the Care Everywhere program and may not contain all information available regarding this patient. Last updated 17.[facility] Allergies Active Allergy Reactions Criticality Noted Date Comments Methocarbamol Other High 10/15/2023 Lost all memory of who she was and didn't recognize any one around her Medications * Be aware that medications may not be up to date on this document. Alwaysverify current medications with the patient. alendronate (Fosamax) 70 MG tablet Take 1 (one) tablet by mouth every 7 days before meal Take in morning with full glass of water on empty stomach and remain upright for 30 min Active atorvastatin (Lipitor) 40 MG tablet Take 1 (one) tablet by mouth at bedtime Active levothyroxine (Synthroid) 50 MCG tablet Take 1 (one) tablet by mouth daily before breakfast Active losartan (Cozaar) 100 MG tablet Take 1 (one) tablet by mouth once daily Active acetaminophen (Tylenol) 500 MG tablet Take 2 (two) tablets by mouth every 6 hours Maximum allowable Acetaminophen amount = 4 Grams (4000 mg) / 24 hours. Active amLODIPine (Norvasc) 10 MG tablet Take 1 (one) tablet by mouth once daily 4 Active donepezil (Aricept) 5 MG tablet Take 1 (one) tablet by mouth once daily 5 Active sertraline (Zoloft) 25 MG tablet Take 1 (one) tablet by mouth once daily 5 Active tamoxifen (Nolvadex) 20 MG tablet Take 1 (one) tablet by mouth once daily 5 Active Active Problems Problem Noted Date Diagnosed Date Pulmonary nodule 06/06/2023 Thyroid nodule 06/06/2023 Acute pain 06/05/2023 Impaired mobility and ADLs 06/05/2023 Hyponatremia 06/04/2023 Fall, initial encounter 06/04/2023 Closed burst fracture of lumbar vertebra, initia l encounter 06/04/2023 Closed fracture of right tibial plateau, initial encounter 06/04/2023 History of left breast cancer 10/09/2022 Aromatase inhibitor use 04/10/2022 Malignant neoplasm of lower- outer quadrant of left breast of female, estrogen receptor positive 10/26/2021 Immunizations Immunization Administration Dates Next Due INFLUENZA VACCINE 11/20/2013,11/26/2012,11/21/19 12 INFLUENZA VACCINE, ADJUVANTE D, QUADR. (FLUAD QUADRIVALENT; 65Y+) (AIIV4) 12/04/2022,2021 INFLUENZA VACCINE, HIGH-DOSE , QUADR. (FLUZONE HIGH-DOSE QUADRIVALENT; 65Y+), 0.7 ML (HD-IIV4) 11/01/2020 INFLUENZA VACCINE, HIGH-DOSE , TRIV. (FLUZONE HIGH-DOSE TRIVALENT; 65Y+) (HD-IIV3) 11/13/2018,11/06/2017,11/08/2016,2015,11/22/2014 INFLUENZA VACCINE, TRIV. (FL UZONE; FLULAVAL; FLUARIX; AFLURIA TRIVALENT; 6MO+), 0.5 ML (IIV3) 11/04/2019 Pneumococcal Pcv13 Conj 05/07/2016 TDAP (7yrs+) 06/04/2023 Family History Medical History Relation Name Comments Cancer - Breast Father CAD (Coronary Artery Disease) Mother Relation Name Status Comments Father Mother Social History Tobacco Use Types Packs/Day Years Used Date Smoking Tobacco: Never Smokeless Tobacco: Never Tobacco Cessation:Counseling Given: Not Answered Alcohol Use Standard Drinks/Week Comments Not Currently 0 (1 standard drink = 0.6 oz pur e alcohol) AUDIT-C Answer Date Recorded Q1: How often do you have a drink containing alcohol? Never 06/05/2023 Q2: How many drinks containi ng alcohol do you have on a typical day when you are drinking? Patient does not drink Q3: How often do you have si x or more drinks on one occasion? Never 06/05/2023 Overall Financial Resource Strain (CARDIA) Answe r Date Recorded How hard is it for you to pa y for the very basics like food, housing, medical care, and heating? Not hard at all 06/05/2023 PHQ-2 Answer Date Recorded Patient Health Questionnaire-2 Score 0 09/24/2024 [facility] - Occupational Stress Questionnaire Answer Date Recorded Do you feel stress - tense, restless, nervous, or anxious, or unable to sleep at night because your mind is troubled all the time - these days? Not at all 06/05/2023 Hunger Vital Sign Answer Date Recorded Within the past 12 months, y ou worried that your food would run out before you got the money to buy more. Never true 06/05/19 Within the past 12 months, t he food you bought just didn't last and you didn't have money to get more. Never true 06/05/2023 PRAPARE - Transportation Answer Date Re corded In the past 12 months, has l ack of transportation kept you from medical appointments or from getting medications? No 05/13 In the past 12 months, has l ack of transportation kept you from meetings, work, or from getting things needed for daily living? No 06/05/2023 Housing Stability Vital Sign Answer William e Recorded In the last 12 months, was t here a time when you were not able to pay the mortgage or rent on time? No 06/05/2023 In the last 12 months, how many places have you lived? 1 06/05/2023 In the last 12 months, was t here a time when you did not have a steady place to sleep or slept in a prison (including now)? No 06/05/2023 Comments Unknown Sex and Gender Information Value Date Recorded Sex Assigned at Not on file Legal Sex Female 11:17 AM CDT Gender Identity Not on file Sexual Orientation Not on file Last Filed Vital Signs Vital Sign Reading Time Taken Comments Blood Pressure 140/60 06/13/2023 11:20 AM CDT Pulse 80 06/13/2023 11:20 AM CDT Temperature 36.9 C (98.5 F) 06/13/2023 11:20 AM CDT Respiratory Rate 18 06/13/2023 3:54 AM CDT Oxygen Saturation 96% 06/13/2023 11:20 AM CDT Inhaled Oxygen Concentration - - Weight 67.1 kg (148 lb) 07/30/2023 12:29 PM CDT Height 157.5 cm (5' 2) 07/30/2023 12:29 PM CDT Body Mass Index 27.07 07/30/2023 12:29 PM CDT Plan of Treatment Health Maintenance Due Date Last Done Comments BONE DENSITY TESTING 1945 ZOSTER VACCINE (1 of 2) 1994 PNEUMOCOCCAL VACCINE 50+ (2 of 2 - PCV20 or PCV21) 05/07/2017 05/07/2016 Respiratory Syncytial Virus (RSV) Vaccine Pt: or over 60 yrs (1 - 1-dose 75+ series) 10/28/2019 MEDICARE AWV CALENDAR YEAR 2024 COVID-19 VACCINE ( - season) 2024 12/04/2022, 09/29/2021, 12/20/2020, Additional history exists INFLUENZA VACCINE (#1) 2024 , 2021, 11/01/2020, Additional history exists DTAP/TDAP/TD VACCINES (2 - Td or Tdap) 06/03/2033 06/04/2023 DEPRESSION SCREENING Completed 09/24/2024, 06/27/19 HEPATITIS B VACCINE Aged Out No longe r eligible based on patient's age to complete this topic HIB VACCINE Aged Out No longer eligi ble based on patient's age to complete this topic HPV VACCINE Aged Out No longer eligi ble based on patient's age to complete this topic MENINGOCOCCAL (Group B) VACCINE SHARED DECISION-MAKING Aged Out No longer eligible based on patient's age to complete this topic MENINGOCOCCAL GROUPS A/C/Y/W VACCINE Aged Out No longer eligible based on patient's age to complete this topic Insurance AETNA MEDICARE ADV Advance Directives * Full Code (Latest Code Status on File) Date Activated Date Inactivated Comments 06/04/2023 8:41 PM 06/13/2023 4:59 PM Care Teams Community Resource Consultant Relationship Specialty Start Date End Date Unknown, Provider PCP - General 06/04/23 Tierney Maldonado [facility] Advance Practice Nurse Nurse Practitioner Primary Care 06/05/23
--- OUTSIDE RECORDS SUMMARY | 2025-02-09 08:28 | XMS_ITS | Clinical Summary ---
Author Organization [facility] Address [facility] [place] [address] Care Team Providers Care Telephone Interviewer Name Role Phone Tierney Maldonado NP Primary Care Provider [phone] Allergies Active Allergy Reactions Criticality Noted Date Comments Methocarbamol Other (See comments) High 10/15/2023 Lost all memory of who she was and didn't recognize any one around her Medications acetaminophen (TYLENOL) 500 mg tablet Take 2 tablets (1,000 mg total) by mouth 06/11/2023 Active alendronate (FOSAMAX) 70 mg tablet TAKE 1 TABLET BY MOUTH WEEKLY IN MORNING WITH A FULL GLASS OF WATER. Active amLODIPine (NORVASC) 5 mg tablet 10/21/2021 Active atorvastatin (LIPITOR) 40 mg tablet Take 1 tablet (40 mg total) by mouth nightly at bedtime. Active ibuprofen (ADVIL,MOTRIN) 400 mg tablet Take 1 tablet (400 mg total) by mouth every 6 (six) hours as needed 12/25/2021 Active indapamide (LOZOL) 2.5 mg tablet 07/21/2021 Active levothyroxine (SYNTHROID) 50 mcg tablet TAKE 1 TABLET BY MOUTH DAILY AT 6.30 AM Active losartan (COZAAR) 100 mg tablet Take 1 tablet (100 mg total) by mouth daily Active traMADoL (ULTRAM) 50 mg tablet Take 1 tablet (50 mg total) by mouth every 6 (six) hours as needed 06/18/2023 Active tamoxifen (NOLVADEX) 20 mg tablet Take 1 tablet (20 mg total) by mouth daily 09/15/2024 Active donepeziL (ARICEPT) 10 mg tablet Take 1 tablet (10 mg total) by mouth daily 30 tablet 11 12/08/2024 Active sertraline (ZOLOFT) 50 mg tablet Take 1 tablet (50 mg total) by mouth daily 30 tablet 11 12/08/2024 Active Active Problems Problem Noted Date Diagnosed Date Alzheimer's disease 12/08/2024 Assessment & Plan (12/08/2024 1:41 PM CDT): Overall, stable cognitive testing. Will increase donepezil/Aricept to 10 mg daily as she has been tolerating it well. Will also increase sertraline/Zoloft to 50 mg daily to aid with low mood. Advised CS to increase sertraline/Zoloft first for one week before increasing donepezil/Aricept. She continues to drive but only with CS in the car. CS was given our director of social work team's contact information for potential further resources. Follow-up in 6 months or sooner if need be. Encounters Date Type Department Care Team Description 12/08/2024 1:00 PM CDT Office Visit [facility] [address] [place] [address] 6[address] [place] [address] Neto Grayson NP Alzheimer's disease (Primary Dx) from Last 3 Months Medical History Medical History Date Comments Age related osteoporosis Hypertension Breast cancer (HCC) Mixed hyperlipidemia Hypothyroid Family History Medical History Relation Name Comments Heart disease Father Alzheimer's disease Mother Diabetes Mother Relation Name Status Comments Father Mother Social History Tobacco Use Types Packs/Day Years Used Date Smoking Tobacco: Former Cigarettes Tobacco Cessation:Counseling Given: Not Answered Comments Unknown Sex and Gender Information Value Date Recorded Sex Assigned at Not on file Legal Sex 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 Gender Identity Female 05/25/2024 11:55 AM CDT Sexual Orientation Straight 05/25/2024 11 :55 AM CDT Last Filed Vital Signs Vital Sign Reading Time Taken Comments Blood Pressure 149/56 12/08/2024 12:47 PM CDT Pulse 62 12/08/2024 12:47 PM CDT Temperature 36.9 C (98.5 F) 12/08/2024 12:47 PM CDT Respiratory Rate - - Oxygen Saturation 97% 12/08/2024 12:47 PM CDT Inhaled Oxygen Concentration - - Weight 61.5 kg (135 lb 8 oz) 12/08/2024 12:47 PM CDT Height 157.5 cm (5' 2) 12/08/2024 12:47 PM CDT Body Mass Index 24.78 12/08/2024 12:47 PM CDT Plan of Treatment Health Maintenance Due Date Last Done Comments Depression Screening 1944 Fall Risk Assessment 1944 Osteoporosis Screening-Bone Density Scan 1944 Hepatitis B Screening 1962 Zoster Vaccine (1 of 2) 10/28/1963 Well Visit 65+ 2009 Pneumococcal vaccine 65+ (2 of 2 - PPSV23, PCV20, or PCV21) 07/02/2016 05/07/2016 Covid-19 Vaccine (7 - 2024-2 6 season) 2024 10/29/2023, 12/04/2022, 09/29/2021, Additional history exists Influenza Vaccine (#1) 2024 , 12/04/2022, 2021, Additional history exists DTaP/Tdap/Td Vaccine (2 - Td or Tdap) 06/03/2033 06/04/2023 Insurance [facility] MEDICARE AETNA MEDICARE Care Teams Telephone Interviewer Relationship Specialty Start Date End Date Tierney Maldonado NP [address] [place] [address] PCP - General Nurse Practitioner 01/29/24
--- OUTSIDE RECORDS SUMMARY | 2025-02-09 08:28 | XMS_ITS | Clinical Summary ---
Author Organization [facility] Address [address] [facility] [place] [address] Care Team Providers Care Asphalt Screed Operator Name Role Phone Cristian Brown MD Primary Care Provider [phone] Allergies Active Allergy Reactions Criticality Noted Date Comments Methocarbamol Confusion,Other (See Comments) High 10/15/2023 Lost all memory of who she was and didn't recognize any one around her Medications amLODIPine (NORVASC) 5 mg tablet 10/21/2021 Active losartan (COZAAR) 100 mg tablet 10/21/2021 Active indapamide (LOZOL) 2.5 mg tablet 07/21/2021 Active levothyroxine 50 mcg tablet 10/12/2021 Activ e atorvastatin (LIPITOR) 40 mg tablet 07/21/2021 Active alendronate sodium (ALENDRONATE ORAL) Take by mouth. Active MULTIVITAMIN ORAL Take by mouth. Active ergocalciferol, vitamin D2, (VITAMIN D ORAL) Take by mouth. Active ibuprofen (MOTRIN) 400 mg tablet Take 1 Tablet (400 mg) by mouth every 6 hours as needed for mild to moderate pain. 30 Tablet 12/25/2021 3:15 PM LINUX DEVELOPER 12/25/2021 Active fluticasone propionate (FLONASE) 50 mcg/spray [place], Suspension nasal inhaler 07/04/2022 Activ e acetaminophen (TYLENOL) 500 mg tablet Take 1,000 mg by mouth. 06/11/2023 Active donepeziL (ARICEPT) 5 mg tablet Take 5 mg by mouth. 08/27/2024 Active sertraline (ZOLOFT) 25 mg tablet Take 1 Tablet by mouth daily. 08/27/2024 Active tamoxifen (NOLVADEX) 20 mg tablet Take 1 Tablet (20 mg) by mouth daily. 90 Tablet 4 09/15/2024 Active Active Problems Patient Care Coordination No te Formatting of this note migh t be different from the original. Primary Care: Cristian Brown MD [place]: [place] [id number] [facility] [address] [place] [address] Other: Dr. Carmel Soliz MD Problem Noted Date Diagnosed Date History of left breast cancer 10/09/2022 Aromatase inhibitor use 04/10/2022 Malignant neoplasm of lower- outer quadrant of left breast of female, estrogen receptor positive 10/26/2021 Encounters Date Type Department Care Team Description 02/02/2025 External Device Data ST[facility] ABSTRACTION Provider, Abstract 12/29/2024 External Device Data [facility] ABSTRACTION Provider, Abstract 11/24/2024 External Device Data ST[facility] ABSTRACTION Provider, Abstract 11/17/2024 External Device Data ST[facility] ABSTRACTION Provider, Abstract [...] Years Used Date Smoking Tobacco: Former Cigarettes 0.5 Q uit: 1982 Smokeless Tobacco: Never Tobacco [...] Sign Reading Time Taken Comments Blood Pressure 128/66 10/20/2024 1:17 PM CDT Pulse 66 09/15/2024 10:19 AM CDT Temperature 36.6 C (97.8 F) 09/15/2024 10:19 AM CDT Respiratory Rate 16 09/15/2024 10:19 AM CDT Oxygen Saturation 96% 09/15/2024 10:19 AM CDT Inhaled Oxygen Concentration - - Weight 61.2 kg (135 lb) 10/20/2024 1:17 PM CDT Height 157.5 cm (5' 2) 10/20/2024 1:17 PM CDT Body Mass Index 24.69 10/20/2024 1:17 PM CDT Plan of Treatment Upcoming Encounters Date Type Department Care Team (Late st Contact Info) Description 03/03/2025 3:45 PM LINUX DEVELOPER Office Visit [facility] Oncology and Hematology - [place] [address] [facility] [address] [place] [address] Chaka Sheehan MD [address] [facility] [address] [place] [address] 11/02/2025 1:00 PM CDT Appointment [facility] [address] [place] [address] Chaka Sheehan MD [address] [facility] [address] [place] [phone] 11/02/2025 2:00 PM CDT Office Visit [facility] Breast Surgery Fina Boyle [address] [facility] [address] [place] [address] [place] [address] [address] [facility] [address] [place] [address] Health Maintenance Due Date Last Done Comments ZOSTER VACCINE (1 of 2) 1994 OSTEOPOROSIS SCREENING 2009 PNEUMOCOCCAL VACCINE 50+ YEA RS (2 of 2 - PCV20 or PCV21) 05/07/2017 05/07/2016 RSV VACCINE (60+ or ) (1 - 1-dose 75+ series) 10/28/2019 INFLUENZA VACCINE (#1) 2024 3, 11/13/2021, 2021, Additional history exists DTAP/TDAP/TD VACCINES (2 - T d or Tdap) 06/03/2033 06/04/2023 Medical Devices Implanted Type Area Gallery Host Device Identifier Shelf Expiration Date Model / Serial / Lot Rf Engineer Clip [place] Iii Ti Landen Sm 9in [id number] - [id number] Implanted:Qty : 1 on 12/25/2021 by Carmel Soliz MD at [facility] Clip Left: Breast [employer] [id number] 07/11/2026 [id number] / / [id number] Insurance [facility] RX [employer] RX Member Subscriber Plan / Payer (Ef fective 2016-Present) Name:Nahomi Villavicencio Relation to Subscriber:Self Name:Nahomi Villavicencio Payer ID:Not on file Group ID:[id number] Type:RX Medicare Part D Address: [address] [facility] Care Teams Asphalt Screed Operator Relationship Specialty Start Date End Date Cristian Brown MD PCP - General Family Practice 08/03/22
[2025-02-09 08:32] VITALS: BP 167/56; PULSE 62; RESP 18; TEMP 36.6; O2SAT 97
[2025-02-09 08:39] VITALS: PULSE 63
--- NOTE | 2025-02-09 08:39 | ECG_ITS ---
Test Date: 2025-02-09 08:33:14 Measurements Intervals [place] Rate: 57 P: 58 [place]: 134 QRS: -61 QRSD: 113 T: 69 QT: 449 QTc: 439 Interpretive Statements SINUS BRADYCARDIA INCOMPLETE RIGHT BUNDLE BRANCH BLOCK LEFT ANTERIOR FASCICULAR BLOCK BASELINE WANDER- V5 ABNORMAL ECG No previous ECG available for comparison Electronically Signed On 02-09-2025 09:14:36 GEOLOGICAL DRAFTER by Alphonse Farrell D.O.
--- NOTE | 2025-02-09 08:44 | ED_ITS ---
HPI - General Adult General Chief complaint: Neuro Symptoms/Deficit Stated complaint: can't move right leg. dizziness, brain fog Time Seen by Provider: 02/09/25 08:25 History of Present Illness HPI narrative: 79-year-old female present to the emergency department for evaluation for right hip pain and decreased range of motion of the right leg. Patient does have a history of Alzheimer's dementia and patient is a poor historian. Patient does have a history of lumbar compression fractures. Patient has no prior history of CVA. Patient's family went to check on her today and patient was having pain of her right leg and weakness of her right leg stating her right leg was not working. Patient is able to grimace and lift the right leg. Patient has no weakness for plantar and dorsiflexion. With passive range of motion of the right leg patient has no pain but when patient attempts to lift the leg she has pain in the right hip. Patient denies any recent falls or injuries. Related Data Home Medications ?Medication ?Instructions ?Recorded ?Confirmed ?Last Taken ?Type acetaminophen 500 mg tablet 975 mg PO Q6H 06/13/23 Unknown History cholecalciferol (vitamin D3) 25 25 mcg PO DAILY 02/01/25 Unknown History mcg (1,000 unit) tablet donepezil 5 mg tablet 10 mg PO 02/01/25 02/01/25 U nknown History sertraline 25 mg tablet 50 mg PO DAILY 02/01/2501/12 Unknown History tamoxifen 20 mg tablet mg PO 02/01/25 02/01/25 Unkn own History Allergies Allergy/AdvReac Type Severity Reaction Status Date / Time methocarbamol (From Robaxin) AdvReac Severe Confusion Verified 02/09/25 08:41 Review of Systems 2 Review of Systems: All systems reviewed & are unremarkable except as noted in HPI and below [facility] Past Medical History Medical History (Updated 02/09/25 @ 12:22 by Stepan Mahajan MD) L3 vertebral fracture Ankle sprain Osteoporosis Lumbar spondylosis L4 vertebral fracture Fracture of proximal end of tibia Mucinous carcinoma of breast Pre-diabetes Screening for colon cancer Screening for breast cancer Postmenopausal Benign essential hypertension Hypothyroidism, unspecified Mixed hyperlipidemia Surgical History Surgical History H/O mastectomy Family History Family History Mother Family history of diabetes mellitus in first degree relative Father Family history of heart disease in male family member before age 55 Social History Social History Smoking packs per day: 0.5 Smoking cigarettes per day: 10.0 Years smoked: 15 Smoking pack-years: 7.50 Smoking status: Former smoker Tobacco type: cigarettes Smoking end date: 11/30/79 Alcohol intake: never Lack of Transportation: No Lack of Food: Never True Current Housing: I Have Housing Concerned About Future Housing: No Difficulty Paying Gas/Electric Bills: No Difficulty Paying for Meds: No Currently Unemployed: No Education: High School Diploma/GED Difficulty w/ Childcare or Family Care: No Occupation/Education: retired Gender identity (if verbalized by the patient): Female Sexual Orientation (if Verbalized by the Patient): Straight or Heterosexual Spiritual care concerns: No Agree to blood products: No Exam 2 Narrative: APPEARANCE: Well appearing, no pain, no distress, well-nourished. HEAD: normocephalic, atraumatic. EYES: PERRLA/EOMI, conjunctivae clear. NOSE: Normal no drainage EARS:TMS clear with good light reflex. THROAT: Pharynx clear, no exudate. NECK: Supple. No adenopathy, no masses. RESPIRATORY: Airway patent, respirations nonlabored. Clear to auscultation bilaterally, no rales, rhonchi, wheezing. CARDIOVASCULAR: Regular rate and rhythm without murmurs rubs or gallops. ABDOMINAL: Soft, nontender, nondistended, normal bowel sounds MUSCULOSKELETAL: Moves all extremities. Strength/ROM intact, No edema, No calf tenderness. NEURO: Possible decreased sensation of the right leg, no drift but pain active lifting of the right leg. Cranial nerve deficit. No drift or weakness of the right hand SKIN: Warm, dry. Normal Color Course Vital Signs Vital signs: Vital Signs Temperature 98 F 02/09/25 08:32 Pulse Rate 62 02/09/25 08:32 Respiratory Rate 18 02/09/25 08:32 Blood Pressure 167/56 H 02/09/25 08:32 Pulse Oximetry 97 02/09/25 08:32 Oxygen Delivery Room Air 02/09/25 08:32 Temperature 98 F 02/09/25 08:32 Pulse Rate 56 L 02/09/25 12:51 Respiratory Rate 18 02/09/25 12:51 Blood Pressure 166/51 H 02/09/25 12:51 Pulse Oximetry 99 02/09/25 12:51 Oxygen Delivery Room Air 02/09/25 08:32 [facility] Narrative Medical decision making narrative: 79-year-old female presents emergency department for evaluation for right hip pain right leg pain. Patient is afebrile no leukocytosis stable hemoglobin with no acute abnormalities on her CMP. Patient had negative imaging of the pelvis and lumbar spine other than previously seen lumbar fractures. Head CT was negative. Patient was treated with [place] and Flexeril and on re-evaluation patient states her leg feels significantly improved. Patient was able to ambulate at baseline, patient feels that sensation is equal bilaterally. Low concern for CVA or TIA. Low concern for cauda equina. I suspect this is an issue with pain control. Family is attempting to get the patient set up with pain management. Patient will be provided prescription for narcotic pain medication and Flexeril. Patient family were updated on the risk factors of starting these medications in her age group. All questions concerns were addressed patient was well-appearing at time of discharge. Differential Diagnosis Differential Diagnosis: TIA, CVA, spinal cord injury, back pain, sciatica, radiculopathy Lab Data [facility] Lab Attestation statement: I personally reviewed the patient's lab results. 02/09/25 09:22 02/09/25 09:00 Labs: Lab Results 02/09/25 02/09/25 Range/Units 09:00 09:22 WBC 8.0 (4.5-10.0) K/mm3 RBC 4.86 (4.2-5.4) M/mm3 Hgb 14.9 (12.0-15.0) g/dL Hct 43.4 (37.0-47.0) % MCV 89.3 (80-100) fl MCH 30.7 (26-34) pg MCHC 34.3 (32-36) g/dl RDW 12.1 (11.5-14.5) % Plt Count 246 (150-375) k/mm3 MPV 9.1 (7.4-10.4) fl Immature Gran % (Auto) 0.1 (0-0.5) % Neut % (Auto) 67.4 (45.5-73.1) % Lymph % (Auto) 24.5 (18.3-44.2) % [place] % (Auto) 7.9 (2.6-8.5) % Eos % (Auto) 0.0 (0-4.4) % Baso % (Auto) 0.1 L (0.2-1.2) % Lymph # (Auto) 1.96 (0.9-3.2) K/mm3 [place] # (Auto) 0.6 (0.1-0.6) K/mm3 Eos # (Auto) 0.0 (0-0.3) K/mm3 Baso # (Auto) 0.0 (0.0-0.1) K/mm3 Abs Immat Gran (auto) 0.01 (0.00-0.031) K/mm3 Absolute Neuts (auto) 5.4 (1.3-6.7) K/mm3 Absolute Nucleated RBC 0.000 (0.0-0.012) K/mm3 Nucleated RBC % 0.0 (0.0-0.2) % Sodium 138 (137-145) mmol/L Potassium 4.1 (3.4-5.0) mmol/L Chloride 103 (98-107) mmol/L Carbon Dioxide 23 (22-30) mmol/L Anion Gap 12 (4-12) mmol/L BUN 15 (7-17) mg/dL Creatinine 0.77 (0.7-1.0) mg/dL Estim Creat Clear Calc 40 ml/min Estimated GFR > 60 (59 - ) Glucose 94 (65-110) mg/dL Calcium 9.5 (8.4-10.2) mg/dL Total Bilirubin 1.0 (0.2-1.3) mg/dL AST 39 H (14-36) U/L ALT 26 (6-35) U/L Alkaline Phosphatase 84 (38-126) U/L Total Protein 8.3 H (6.3-8.2) g/dL Albumin 4.3 (3.5-5.1) g/dL Imaging Data Radiologist's impression: ITS Impressions Lumbar Spine CT 02/09/25 10:09 IMPRESSION: 1. Acute versus subacute L3 burst fracture, stable from 02/01/2025. 2. Severe lumbar spondylosis. 3. Lumbar levoscoliosis. Head/Neck CTA 02/09/25 10:14 IMPRESSION: 1. Moderate nonspecific cerebral white matter disease, which likely represents chronic small vessel ischemic disease. 2. No aneurysm or significant intracranial arterial stenosis. 3. 0% stenosis of the proximal internal carotid arteries relative to normal distal artery lumen diameters (NASCET criteria). 4. Multinodular goiter. Consider thyroid ultrasound for risk stratification if clinically indicated given the patient's age. Pelvis CT 02/09/25 10:20 IMPRESSION: 1. Mild osteoarthritis of the hips. Discharge Plan Discharge Clinical Impression: Acute leg pain, Back pain Patient Disposition: Home Condition: Stable Instructions: Antibiotic Form Additional Instructions: Orlando for pain control. Flexeril for muscle spasm. Have close follow-up with your primary care physician and with pain management. If you have any worsening symptoms then please call or return to the emergency department. Patient Language: Belarusian Prescriptions: New hydrocodone-acetaminophen 5-325 mg tablet 1 tablet PO Q12H PRN (Reason: pain) Qty: 14 0RF cyclobenzaprine 10 mg tablet 10 mg PO BID PRN (Reason: muscle spasm) Qty: 14 0RF No Action donepezil 5 mg tablet 10 mg PO sertraline 25 mg tablet 50 mg PO DAILY tamoxifen 20 mg tablet PO methylprednisolone [Medrol (Isiah)] 4 mg tablets,dose pack See Rx Instructions PO PER PKG DIR Qty: 21 0RF Rx Instructions: PO PER PKG DIR fluticasone propionate [Flonase Allergy Relief] 50 mcg/actuation spray,suspension 2 spray intranasal DAILY Qty: 16 4RF Rx Instructions: administer into each nostril lidocaine 5 % adhesive patch,medicated 2 patch topical DAILY Qty: 30 0RF Rx Instructions: leave on most painful area for up to 12 hrs amlodipine 10 mg tablet 10 mg PO DAILY Qty: 90 1RF alendronate [Fosamax] 70 mg tablet 70 mg PO WEEKLY Qty: 12 1RF Rx Instructions: Take in the morning with full glass of water on empty stomach and remain upright for 30 minutes losartan 100 mg tablet 100 mg PO DAILY Qty: 90 1RF levothyroxine 50 mcg tablet See Rx Instructions .ROUTE .COMPLEX Qty: 90 0RF Dose Instruction: TAKE 1 TABLET BY MOUTH DAILY AT 6.30 AM Rx Instructions: TAKE 1 TABLET BY MOUTH DAILY AT 6.30 AM atorvastatin 40 mg tablet See Rx Instructions .ROUTE .COMPLEX Qty: 90 0RF Dose Instruction: TAKE 1 TABLET BY MOUTH AT BEDTIME Rx Instructions: TAKE 1 TABLET BY MOUTH AT BEDTIME acetaminophen 500 mg Tablet 975 mg PO Q6H Rx Instructions: Maximum allowable acetaminophen amount= 4 grams (4000mg) per 24 hours cholecalciferol (vitamin D3) 25 mcg (1,000 unit) Tablet 25 mcg PO DAILY tramadol 50 mg Tablet 25 mg PO Q6H PRN (Reason: Pain 1-10) Qty: 12 0RF Follow-up/Referrals: Delta Arauz MD [Physician, Pain Management] Tierney Maldonado APRN [Primary Care Provider, Internal Medicine]
[2025-02-09] MEDS: CYCLOBENZAPRINE HCL 10 MG TABLET PO (09:13)
[2025-02-09] MEDS: HYDROcodone/acetaminophen (*CRX) 5-325 MG TABLET 1 TAB PO (09:13)
--- OUTSIDE RECORDS SUMMARY | 2025-02-09 09:13 | XMS_ITS | Clinical Summary ---
Author Organization [facility] Address [address] [place] [address] Care Team Providers Care Disintegrator Operator Name Role Phone Unknown, Provider Primary Care Provider Unavaila ble Source Comments [facility],non-owned Affiliates and Associated Physician Practices is amultiple site organization consisting of ambulatory clinics and hospital sitesin [place], [place] and [place]. This disclosure is being madepursuant to the Care Everywhere program and may not contain all information available regarding this patient. Last updated 17.[facility] Allergies Active Allergy Reactions Criticality Noted Date [...] Recorded Patient Health Questionnaire-2 Score 0 09/24/2024 [facility] - Occupational Stress [...] place to sleep or slept in a assisted (including now)? No 06/05/2023 Comments Unknown Sex [...] 8:41 PM 06/13/2023 4:59 PM Care Teams Disintegrator Operator Relationship Specialty Start Date End Date Unknown, Provider PCP - General 06/04/23 Tierney Maldonado ACCOUNTING ANALYST Advance Practice Nurse Nurse Practitioner Primary Care 06/05/23
--- OUTSIDE RECORDS SUMMARY | 2025-02-09 09:13 | XMS_ITS | Clinical Summary ---
Author Organization [facility] Address [facility] [place] [address] Care Team Providers Care Blueprint Cutter Name Role Phone Tierney Maldonado NP Primary Care Provider [phone] Allergies Active Allergy Reactions Criticality Noted Date [...] in the car. CS was given our social worker clinical team's contact information for potential further resources. Follow-up in 6 months or sooner if need be. 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
--- OUTSIDE RECORDS SUMMARY | 2025-02-09 09:13 | XMS_ITS | Clinical Summary ---
[facility] Address [address] [facility] [place] [address] Care Team Providers Care Engine Cowling Installer Name Role Phone Cristian Brown MD Primary Care Provider [phone] Allergies Active Allergy Reactions Criticality Noted Date [...] moderate pain. 30 Tablet 12/25/2021 3:15 PM HAND STRAIGHTENER 12/25/2021 Active fluticasone propionate (FLONASE) 50 mcg/spray [place], Suspension nasal inhaler 07/04/2022 Activ e acetaminophen [...] Brown [place]: [place] [id number] [facility] [address] [place] [address] Other: Dr. Carmel Soliz MD Problem Noted [...] st Contact Info) Description 03/03/2025 3:45 PM HAND STRAIGHTENER Office Visit [facility] Oncology and Hematology - [place] [address] [facility] [address] [place] [address] Chaka Sheehan MD [address] [facility] [email or web address] [address] [place] [address] 11/02/2025 1:00 PM CDT Appointment [facility] Fina Boyle [address] [place] [address] Chaka Sheehan MD [address] [facility] [email or web address] [address] [place] [id number] 11/02/2025 2:00 PM CDT Office Visit [facility] Breast Surgery Fina Boyle [address] [facility] [address] [place] [address] [place] [address] [address] [facility] [address] [place] [address] Health Maintenance Due Date Last [...] 06/03/2033 06/04/2023 Medical Devices Implanted Type Area [employer] Device Identifier Shelf Expiration Date Model / Serial / Lot Firing Pin Gauger Clip [place] Iii Ti Landen Sm 9in [id number] - [id number] Implanted:Qty : 1 on 12/25/2021 by Carmel Soliz MD at [facility] Clip Left: Breast [employer] [id number] 07/11/2026 [id number] / / [id number] [facility] RX OPT[employer] RX Member Subscriber Plan / Payer (Ef fective 2016-Present) Name:Nahomi Villavicencio Relation to Subscriber:Self Name:Nahomi Villavciencio Payer ID:Not on file Group ID:[id number] Type:RX Medicare Part D Address: [address] [facility] Care Teams Engine Cowling Installer Relationship Specialty Start Date End Date Cristian Brown MD PCP - General Family Practice 08/03/22
[2025-02-09 09:16] VITALS: BP 154/62; PULSE 62; RESP 20; O2SAT 98
[2025-02-09 09:18] VITALS: BP 154/62; PULSE 57; RESP 15
[2025-02-09 09:26] LABS: Alanine Aminotransferase 26 U/L (6-35); Albumin Level 4.3 g/dL (3.5-5.1); Alkaline Phosphatase 84 U/L (38-126); Anion Gap 12 mmol/L (4-12); Aspartate Amino Transferase 39 U/L (14-36); Bilirubin,Total 1.0 mg/dL (0.2-1.3); Blood Urea Nitrogen 15 mg/dL (7-17); Calcium 9.5 mg/dL (8.4-10.2); Carbon Dioxide 23 mmol/L (22-30); Chloride 103 mmol/L (98-107); Estimated CRCL calculation 40 ml/min; Estimated Glomerular Filt Rate > 60; Glucose 94 mg/dL (65-110); Potassium 4.1 mmol/L (3.4-5.0); Sodium 138 mmol/L (137-145); Total Protein 8.3 g/dL (6.3-8.2)
[2025-02-09 09:27] LABS: Hematocrit 43.4 % (37.0-47.0); Hemoglobin 14.9 g/dL (12.0-15.0); Immature Granulocyte Percent A 0.1 % (0-0.5); Lymphocytes Absolute Auto 1.96 K/mm3 (0.9-3.2); Mean Corpuscular HGB Conc 34.3 g/dl (32-36); Mean Corpuscular Hemoglobin 30.7 pg (26-34); Mean Corpuscular Volume 89.3 fl (80-100); Nucleated Red Blood Cells Absolute Auto 0.000 K/mm3 (0.0-0.012); Nucleated Red Blood Cells Perc 0.0 % (0.0-0.2); Platelet Count Result 246 k/mm3 (150-375); Red Blood Count 4.86 M/mm3 (4.2-5.4); White Blood Count 8.0 K/mm3 (4.5-10.0)
--- NOTE | 2025-02-09 09:48 | PC.NURSE ---
Pt to CT scan via stretcher at this time.
[2025-02-09 11:00] VITALS: PULSE 50; RESP 13; O2SAT 100
[2025-02-09 12:51] VITALS: BP 166/51; PULSE 56; RESP 18; O2SAT 99
== END 2025-02-09 12:51 | disposition home or self-care (01) ==
PROVIDERS: Emergency Provider Emergency Medicine; PCP Nurse Practitioner Family
DX: M79.604 Pain in right leg (principal); M54.9 Dorsalgia, unspecified; G30.9 Alzheimer's disease, unspecified; F02.80 Dementia in other diseases classified elsewhere, unspecified severity, without behavioral disturbance, psychotic disturbance, mood disturbance, and anxiety; I10 Essential (primary) hypertension; E03.9 Hypothyroidism, unspecified; E78.2 Mixed hyperlipidemia; R73.03 Prediabetes; M81.0 Age-related osteoporosis without current pathological fracture; Z85.3 Personal history of malignant neoplasm of breast; Z87.891 Personal history of nicotine dependence; Z90.10 Acquired absence of unspecified breast and nipple; Z79.899 Other long term (current) drug therapy; M47.816 Spondylosis without myelopathy or radiculopathy, lumbar region; R90.82 White matter disease, unspecified; M16.0 Bilateral primary osteoarthritis of hip; E04.2 Nontoxic multinodular goiter; R00.1 Bradycardia, unspecified; I45.2 Bifascicular block; S32.031D Stable burst fracture of third lumbar vertebra, subsequent encounter for fracture with routine healing; X58.XXXD Exposure to other specified factors, subsequent encounter
CPT/HCPCS: 36415; 70496; 70498; 72131; 72192; 80053; 85025; 93005; 99284; A9270; Q9967